=== PATIENT | female | born 1945 | race Caucasian/White ===

== ENCOUNTER 2017-07-11 10:38 | Inpatient (IN) | payer MEDICARE, BC ==
[2017-07-11] MEDS ORDERED: methylPREDNISolone Sodium Succinate 125 MG/2 ML SDV IVPUSH ONE (10:51)
[2017-07-11] MEDS ORDERED: Albuterol/Ipratropium 3.0-0.5 MG/3 ML Neb Soln NEB ONE (10:51)
--- NOTE | 2017-07-11 10:53 | EDM.PDOC ---
ED HPI GENERAL MEDICAL PROBLEM - General Stated Complaint: SOB, FEVER Time Seen by Provider: 07/11/17 10:38 Source of Information: Reports: Patient, Family History Limitations: Reports: Respiratory Distress - History of Present Illness INITIAL COMMENTS - FREE TEXT/NARRATIVE: 72 y.o.w.f with H/O lung CA, S/P right sided pneumonectomy 2002, former smoker, H/O COPD, was on 2 liter Home O2 which she had to increase to 4 ml by NC due to worsening of SOB. No cough, no F/C no other acute medical issues BP 122/85 Pulse 85 Pulse oc 94 % on 4 liters O2 Temp 36.6 Onset Date: 07/11/17 Onset Time: 07:00 Duration: Day(s): Location: Reports: Chest Quality: Reports: Same as Previous Episode Severity: Moderate Improves with: Reports: Medication Worsens with: Reports: None Context: Reports: Other (H/O Lung CA R pneumonectomy) Associated Symptoms: Reports: Shortness of Breath - Related Data Allergies Allergy/AdvReac Type Severity Reaction Status Date / Time No Known Allergies Allergy Verified 07/11/17 13:01 Home Meds: Home Meds Clopidogrel [Plavix] 75 mg PO DAILY@1330 06/25/15 [History] Isosorbide Mononitrate [Isosorbide Mononitrate ER] 30 mg PO DAILY 06/25/15 [ History] Multivitamin [Multi-Day Vitamins] 1 tab DAILY 06/25/15 [History] atorvaSTATin [Lipitor] 40 mg PO DAILY 06/25/15 [History] Digoxin [Digox] 125 mcg PO DAILY 07/12/15 [History] Escitalopram [Lexapro] 10 mg PO DAILY 07/12/15 [History] Furosemide [Lasix] 20 mg PO DAILY #60 tablet 07/19/15 [Rx] Ferrous Sulfate 325 mg PO DAILY 09/14/15 [History] Metoprolol Tartrate 25 mg PO DAILY 09/14/15 [History] Potassium Chloride 20 meq PO DAILY 09/14/15 [History] Acetaminophen [Tylenol] 650 mg PO Q4H PRN 07/09/16 [History] Albuterol/Ipratropium [Combivent Respimat] 1 puff IH 6XDAY PRN 07/11/17 [History ] Aspirin [Ecotrin] 81 mg PO DAILY 07/11/17 [History] Ranitidine [Zantac] 75 mg PO DAILY 07/11/17 [History] predniSONE 20 mg PO BID #10 tab 07/13/17 [Rx] Past Medical History HEENT History: Reports: Retinal Detachment, Sinusitis Cardiovascular History: Reports: Heart Murmur, Heart Valve Replacement, High Cholesterol, [place], Pacemaker, SOB on Exertion, Stents Respiratory History: Reports: Bronchitis, Recurrent, COPD, Pneumonia, Recurrent , SOB [employer] History: Reports: Musculoskeletal History: Reports: Fracture Other Musculoskeletal History: fx R ankle Hematologic History: Reports: Anemia, Blood Transfusion(s) Oncologic (Cancer) History: Reports: Lung Dermatologic History: Reports: Eczema, Psoriasis - Infectious Disease History Infectious Disease History: Reports: Chicken Pox, Measles, Mumps, Shingles - Past Surgical History HEENT Surgical History: Reports: Cataract Surgery, Eye Surgery, Tonsillectomy Cardiovascular Surgical History: Reports: AAA Repair, Carotid Stents, Pacer, Valve Replacement Respiratory Surgical History: Reports: Lung Biopsies, Lung Resection, Thoracotomy, Other (See Below) Musculoskeletal Surgical History: Reports: Other (See Below) Social & Family History - Family History HEENT: Reports: Hearing Impairment Cardiac: Reports: High Cholesterol, [place] Respiratory: Reports: None GI: Reports: Irritable Bowel Syndrome : Reports: Renal Calculus OBGYN: Reports: , Recurrent Spontaneous Musculoskeletal: Reports: Back pain, Chronic Neurological: Reports: None Psychiatric: Reports: None Endocrine/Metabolic: Reports: Diabetes, type II Hematologic: Reports: Anemia Immunologic: Reports: None Dermatologic: Reports: Eczema, Psoriasis Oncologic: Reports: Lung - Tobacco Use Smoking Status *Q: Former Smoker Years of Tobacco use: 40 Packs/Tins Daily: 1 Used Tobacco, but Quit: Yes Month Tobacco Last Used: 05/2001 Second Hand Smoke Exposure: No - Caffeine Use Caffeine Use: Reports: Coffee - Recreational Drug Use Recreational Drug Use: No ED ROS GENERAL - Review of Systems Review Of Systems: See Below Constitutional: Reports: No Symptoms HEENT: Reports: No Symptoms Respiratory: Reports: Shortness of Breath Cardiovascular: Reports: No Symptoms Endocrine: Reports: No Symptoms GI/Abdominal: Reports: No Symptoms : Reports: No Symptoms Musculoskeletal: Reports: No Symptoms Skin: Reports: No Symptoms Neurological: Reports: No Symptoms Psychiatric: Reports: No Symptoms Hematologic/Lymphatic: Reports: No Symptoms Immunologic: Reports: No Symptoms ED EXAM, GENERAL - Physical Exam Exam: See Below Exam Limited By: Respiratory Distress General Appearance: Alert, WD/WN, Mild Distress Eye Exam: Bilateral Eye: Normal Inspection Ears: Normal External Exam Ear Exam: Bilateral Ear: Auricle Normal Nose: Normal Inspection, Normal Mucosa Throat/Mouth: Normal Inspection, Normal Lips Head: Atraumatic, Normocephalic Neck: Normal Inspection, Supple, Non-Tender Respiratory/Chest: Respiratory Distress, Decreased Breath Sounds, Prolonged Expiration Cardiovascular: Normal Peripheral Pulses, Regular Rate, Rhythm GI/Abdominal: Normal Bowel Sounds, Soft, Non-Tender (Female) Exam: Deferred Rectal (Female) Exam: Deferred Back Exam: Normal Inspection, Full Range of Motion Extremities: Normal Inspection, Normal Range of Motion, Non-Tender, No Pedal Edema Neurological: Alert, Oriented, CN II-XII Intact, Normal Cognition Psychiatric: Normal Affect, Normal Mood Skin Exam: Warm, Dry, Intact, Normal Color, No Rash Lymphatic: No Adenopathy EKG INTERPRETATION EKG Date: 07/11/17 Time: 15:00 Rhythm: NSR [place]: LAD-Left [place] Deviation P-Wave: Present QRS: LBBB ST-T: Normal QT: Normal Comparison: NA - No Prior EKG Course - Vital Signs Text/Narrative:: 72 y.o.w.f with H/O lung CA, S/P right sided pneumonectomy 2002, former smoker, H/O COPD, was on 2 liter Home O2 which she had to increase to 4 ml by NC due to worsening of SOB. No cough, no F/C no other acute medical issues BP 122/85 Pulse 85 Pulse oc 94 % on 4 liters O2 Temp 36.6 PE: WNWD WF with COPD exacerbation Imaging: CXR R pneumectomy COPD Impression: COPD exacerbation, S/P right sided pneumectomy Tx: Solu Medrol Duoneb Reexam: Minor improvement 12.[address] Rodriguez: Accepted for admission Plan: Admit for further Tx Last Recorded V/S: Last Vital Signs Temp 36.4 C 07/13/17 08:00 Pulse 113 H 07/13/17 08:52 Resp 18 07/13/17 08:00 BP 149/78 H 07/13/17 08:51 Pulse Ox 93 L 07/13/17 08:15 - Orders/Labs/Meds Labs: Laboratory Tests 07/11/17 07/11/17 07/11/17 Range/Units 11:10 11:10 11:10 WBC 9.4 (4.5-12.0) X10-3/uL RBC 3.77 (3.23-5.20) x10(6)uL Hgb 11.4 L (11.5-15.5) g/dL Hct 34.3 (30.0-51.3) % MCV 90.8 (80-96) fL MCH 30.2 (27.7-33.6) pg MCHC 33.2 (32.2-35.4) g/dL RDW 13.2 (11.5-15.5) % Plt Count 323 (125-369) X10(3)uL MPV 7.4 (7.4-10.4) fL Neut % (Auto) 82.2 H (46-82) % Lymph % (Auto) 4.6 L (13-37) % [place] % (Auto) 10.3 (4-12) % Eos % (Auto) 2 (1.0-5.0) % Baso % (Auto) 1 (0-2) % Neut # (Auto) 7.8 (1.6-8.3) # Lymph # (Auto) 0.4 L (0.6-5.0) # [place] # (Auto) 1.0 (0.0-1.3) # Eos # (Auto) 0.1 (0.0-0.8) # Baso # (Auto) 0.1 (0.0-0.2) # Add Manual Diff Neutrophils % (Manual) (46-82) % Lymphocytes % (Manual) (13-37) % Monocytes % (Manual) (4-12) % Sodium 143 (135-145) mmol/L Potassium 4.2 (3.5-5.3) mmol/L Chloride 105 (100-110) mmol/L Carbon Dioxide 31 (21-32) mmol/L BUN 26 H (7-18) mg/dL Creatinine 0.7 (0.55-1.02) mg/dL Est Cr Clr Drug Dosing TNP Estimated GFR (MDRD) > 60 (>60) BUN/Creatinine Ratio 37.1 H (9-20) Glucose 110 (80-116) mg/dL Lactic Acid (0.4-2.2) mmol/L Calcium 9.3 (8.6-10.2) mg/dL Troponin I < 0.017 L (<0.017-0.056) ng/mL NT-Pro-B Natriuret Pep 636 H (<=125) pg/mL Urine Color (YELLOW) Urine Appearance (CLEAR) Urine pH (5.0-6.5) Ur Specific [place] (1.010-1.025) Urine Protein (NEGATIVE) mg/dL Urine Glucose (UA) (NEGATIVE) mg/dL Urine Ketones (NEGATIVE) mg/dL Urine Occult Blood (NEGATIVE) Urine Nitrite (NEGATIVE) Urine Bilirubin (NEGATIVE) Urine Urobilinogen (NEGATIVE) mg/dL Ur Leukocyte Esterase (NEGATIVE) Urine RBC (0) Urine WBC (0) Ur Squamous Epith Cells (NS,R,O) Urine Bacteria (NS) Urine Mucus (NS) Ur L.pneumophila Ag (NEG) 07/11/17 07/11/17 07/11/17 Range/Units 11:10 12:00 19:20 WBC (4.5-12.0) X10-3/uL RBC (3.23-5.20) x10(6)uL Hgb (11.5-15.5) g/dL Hct (30.0-51.3) % MCV (80-96) fL MCH (27.7-33.6) pg MCHC (32.2-35.4) g/dL RDW (11.5-15.5) % Plt Count (125-369) X10(3)uL MPV (7.4-10.4) fL Neut % (Auto) (46-82) % Lymph % (Auto) (13-37) % [place] % (Auto) (4-12) % Eos % (Auto) (1.0-5.0) % Baso % (Auto) (0-2) % Neut # (Auto) (1.6-8.3) # Lymph # (Auto) (0.6-5.0) # [place] # (Auto) (0.0-1.3) # Eos # (Auto) (0.0-0.8) # Baso # (Auto) (0.0-0.2) # Add Manual Diff Neutrophils % (Manual) (46-82) % Lymphocytes % (Manual) (13-37) % Monocytes % (Manual) (4-12) % Sodium (135-145) mmol/L Potassium (3.5-5.3) mmol/L Chloride (100-110) mmol/L Carbon Dioxide (21-32) mmol/L BUN (7-18) mg/dL Creatinine (0.55-1.02) mg/dL Est Cr Clr Drug Dosing Estimated GFR (MDRD) (>60) BUN/Creatinine Ratio (9-20) Glucose (80-116) mg/dL Lactic Acid 0.8 (0.4-2.2) mmol/L Calcium (8.6-10.2) mg/dL Troponin I (<0.017-0.056) ng/mL NT-Pro-B Natriuret Pep (<=125) pg/mL Urine Color Yellow (YELLOW) Urine Appearance Clear (CLEAR) Urine pH 5.0 (5.0-6.5) Ur Specific [place] 1.020 (1.010-1.025) Urine Protein Negative (NEGATIVE) mg/dL Urine Glucose (UA) Normal (NEGATIVE) mg/dL Urine Ketones Negative (NEGATIVE) mg/dL Urine Occult Blood Moderate H (NEGATIVE) Urine Nitrite Negative (NEGATIVE) Urine Bilirubin Negative (NEGATIVE) Urine Urobilinogen 1 H (NEGATIVE) mg/dL Ur Leukocyte Esterase Small H (NEGATIVE) Urine RBC 0-5 (0) Urine WBC 0-5 (0) Ur Squamous Epith Cells Few H (NS,R,O) Urine Bacteria Few H (NS) Urine Mucus Few H (NS) Ur L.pneumophila Ag Negative (NEG) 07/12/17 07/12/17 07/12/17 Range/Units 06:48 06:48 06:48 WBC 7.4 (4.5-12.0) X10-3/uL RBC 3.70 (3.23-5.20) x10(6)uL Hgb 11.1 L (11.5-15.5) g/dL Hct 32.9 (30.0-51.3) % MCV 89.1 (80-96) fL MCH 30.2 (27.7-33.6) pg MCHC 33.9 (32.2-35.4) g/dL RDW 13.1 (11.5-15.5) % Plt Count 336 (125-369) X10(3)uL MPV 7.5 (7.4-10.4) fL Neut % (Auto) (46-82) % Lymph % (Auto) (13-37) % [place] % (Auto) (4-12) % Eos % (Auto) (1.0-5.0) % Baso % (Auto) (0-2) % Neut # (Auto) (1.6-8.3) # Lymph # (Auto) (0.6-5.0) # [place] # (Auto) (0.0-1.3) # Eos # (Auto) (0.0-0.8) # Baso # (Auto) (0.0-0.2) # Add Manual Diff Yes Neutrophils % (Manual) 94 H (46-82) % Lymphocytes % (Manual) 5 L (13-37) % Monocytes % (Manual) 1 L (4-12) % Sodium 142 (135-145) mmol/L Potassium 4.2 (3.5-5.3) mmol/L Chloride 104 (100-110) mmol/L Carbon Dioxide 30 (21-32) mmol/L BUN 28 H (7-18) mg/dL Creatinine 0.5 L (0.55-1.02) mg/dL Est Cr Clr Drug Dosing 96.61 Estimated GFR (MDRD) > 60 (>60) BUN/Creatinine Ratio 56.0 H (9-20) Glucose 167 H (80-116) mg/dL Lactic Acid (0.4-2.2) mmol/L Calcium 9.4 (8.6-10.2) mg/dL Troponin I < 0.017 L (<0.017-0.056) ng/mL NT-Pro-B Natriuret Pep (<=125) pg/mL Urine Color (YELLOW) Urine Appearance (CLEAR) Urine pH (5.0-6.5) Ur Specific [place] (1.010-1.025) Urine Protein (NEGATIVE) mg/dL Urine Glucose (UA) (NEGATIVE) mg/dL Urine Ketones (NEGATIVE) mg/dL Urine Occult Blood (NEGATIVE) Urine Nitrite (NEGATIVE) Urine Bilirubin (NEGATIVE) Urine Urobilinogen (NEGATIVE) mg/dL Ur Leukocyte Esterase (NEGATIVE) Urine RBC (0) Urine WBC (0) Ur Squamous Epith Cells (NS,R,O) Urine Bacteria (NS) Urine Mucus (NS) Ur L.pneumophila Ag (NEG) Meds: Medications Discontinued Medications Generic Name Dose Route Start Last Admin Trade Name Freq PRN Reason Stop Dose Admin Acetaminophen 650 mg 07/11/17 15:06 Tylenol PO Q4H PRN Pain/Fever Albuterol/Ipratropium 3 ml 07/11/17 10:51 07/11/17 12:16 Duoneb 3.0-0.5 Mg/3 Ml NEB 07/11/17 10:52 3 ml ONETIME ONE Administration Albuterol/Ipratropium 0 gm 07/11/17 16:00 07/11/17 20:29 Combivent Respimat INH 1 spray 6XDAY PRN Administration BREATHING Albuterol/Ipratropium 3 ml 07/12/17 08:15 07/12/17 09:44 Duoneb 3.0-0.5 Mg/3 Ml INH 3 ml Q4H PRN Administration SHORTNESS OF BREATH Aspirin 81 mg 07/11/17 16:00 07/13/17 08:51 Halfprin PO 81 mg DAILY TRAN Administration Atorvastatin Calcium 40 mg 07/12/17 09:00 07/13/17 08:51 Lipitor PO 40 mg DAILY TRAN Administration Clopidogrel Bisulfate 75 mg 07/11/17 16:00 07/12/17 13:48 Plavix PO 75 mg DAILY@1330 TRAN Administration Digoxin 125 mcg 07/12/17 09:00 07/13/17 08:52 Lanoxin PO 125 mcg DAILY TRAN Administration Escitalopram Oxalate 10 mg 07/12/17 09:00 07/13/17 08:52 Lexapro PO 10 mg DAILY TRAN Administration Famotidine 10 mg 07/12/17 09:00 Pepcid PO DAILY PRN HEARTBURN Ferrous Sulfate 325 mg 07/12/17 09:00 07/13/17 08:51 Ferrous Sulfate PO 325 mg DAILY TRAN Administration Furosemide 20 mg 07/12/17 09:00 07/13/17 08:52 Lasix PO 20 mg DAILY TRAN Administration Furosemide 20 mg 07/12/17 08:05 07/12/17 09:19 Lasix IVPUSH 07/12/17 08:06 20 mg ONETIME ONE Administration Levofloxacin/Dextrose 500 mg/ 100 mls @ 100 mls/hr 07/12/17 09:00 07/13/17 08 :59 Premix IV 100 mls/hr Q24H TRAN Administration Isosorbide Mononitrate 30 mg 07/12/17 09:00 07/13/17 08:51 Imdur PO 30 mg DAILY TRAN Administration Methylprednisolone Sodium Succinate 125 mg 07/11/17 10:51 07/11/17 11:25 Solu-Medrol IVPUSH 07/11/17 10:52 125 mg ONETIME ONE Administration Methylprednisolone Sodium Succinate 125 mg 07/11/17 12:45 07/11/17 14:00 Solu-Medrol IVPUSH Not Given Q8H TRAN Methylprednisolone Sodium Succinate 125 mg 07/11/17 20:00 07/13/17 04:52 Solu-Medrol IVPUSH 125 mg Q8H TRAN Administration Metoprolol Tartrate 25 mg 07/12/17 09:00 07/13/17 08:50 Lopressor PO 25 mg DAILY TRAN Administration Multivitamins/Minerals/Vitamin C 1 tab 07/12/17 09:00 07/13/17 08:51 Tab-A-Kori PO 1 tab DAILY TRAN Administration Ondansetron HCl 4 mg 07/11/17 12:41 Zofran Odt PO Q4H PRN nausea, able to take PO Potassium Chloride 20 meq 07/12/17 09:00 07/13/17 08:52 Klor-Con M20 PO 20 meq DAILY TRAN Administration Sodium Chloride 10 ml 07/11/17 12:56 07/13/17 04:53 Saline Flush FLUSH 10 ml ASDIRECTED PRN Administration Keep Vein Open Zolpidem Tartrate 5 mg 07/12/17 18:47 Ambien PO BEDTIME PRN Sleep Departure - Departure Time of Disposition: 10:00 Disposition: Admitted As Inpatient 67 Condition: Fair Clinical Impression: COPD with exacerbation - Discharge Information
[2017-07-11] MEDS: Sodium Chloride 0.9% 10 ML Syringe FLUSH PRN (11:25)
[2017-07-11] MEDS ORDERED: Ondansetron 4 MG Tab.DIS PO PRN (12:41)
[2017-07-11] MEDS ORDERED: methylPREDNISolone Sodium Succinate 125 MG/2 ML SDV IVPUSH SCH (12:45)
--- NOTE | 2017-07-11 13:54 | CR ---
INDICATION: Short of breath. CHEST: PA and lateral views of the chest 07/11/2017 were compared with 2016 and 02/10/2016, again revealing opacification of the right hemithorax with shift to the right of midline structures. This is compatible with right pneumonectomy. The heart did not appear enlarged with bipolar pacemaker leads unchanged in position. The left lung appears to be somewhat hyperaerated with flattened diaphragm leaves, which may simply be on the basis of compensatory hyperaeration. There appears to be mild prominence of the upper lung field pulmonary vasculature, which may be on the basis of compensatory hyperaeration also. Interstitial markings are prominent, suggesting the possibility of either fibrosis, lung edema, or infection - correlate clinically. No consolidating pneumonia or effusion was seen, however. IMPRESSION: Stable chest, no definite acute process. Findings should be correlated clinically, however, as noted above. MTDD
[2017-07-11] MEDS ORDERED: Acetaminophen 325 MG Tab PO PRN (15:06)
[2017-07-11] MEDS ORDERED: IPRATROPIUM INH PRN (16:00)
[2017-07-11] MEDS ORDERED: ALBUTEROL INH PRN (16:00)
[2017-07-11] MEDS: Aspirin 81 MG Tab.EC PO SCH (16:26)
[2017-07-11] MEDS: Clopidogrel 75 MG Tab PO SCH (16:26)
--- NOTE | 2017-07-11 18:05 | PCM.HP ---
H&P History of Present Illness - General Date of Service: 07/11/17 Admit Problem/Dx: Admission Diagnosis/Problem Admission Diagnosis/Problem COPD, Mild chronic obstructive pulmonary disease Source of Information: Patient, Old Records History Limitations: Reports: No Limitations - History of Present Illness Initial Comments - Free Text/Narative: Charito is a 72-year-old female came in with shortness of breath cough symptoms have been going on since the middle of May. She was treated with Levaquin by Dr Ruiz as an outpatient,with minimal improvement.She also took prednisone but did not seem to improve.She complains of extreme shortness of breath on ambulation or even speech. She's has a h/o of COPD that is oxygen dependent, history of lung cancer with pneumonectomy on the right, about 15 years ago. She is a previous smoker. She also has a history of atrial fibrillation, coronary disease that previously been stable.ECHO in 09/2016 showed EF of 65%. In 2015 she was admitted with RSV bronchiolitis that center into respiratory failure. This time she complains of a productive cough as well and increased need of oxygenation. No leg swelling no chest pain and no chills.Has had fever on and off. - Related Data Allergies/Adverse Reactions: Allergies Allergy/AdvReac Type Severity Reaction Status Date / Time No Known Allergies Allergy Verified 07/11/17 13:01 Home Medications: Home Meds Clopidogrel [Plavix] 75 mg PO DAILY@1330 06/25/15 [History] Isosorbide Mononitrate [Isosorbide Mononitrate ER] 30 mg PO DAILY 06/25/15 [ History] Multivitamin [Multi-Day Vitamins] 1 tab DAILY 06/25/15 [History] atorvaSTATin [Lipitor] 40 mg PO DAILY 06/25/15 [History] Digoxin [Digox] 125 mcg PO DAILY 07/12/15 [History] Escitalopram [Lexapro] 10 mg PO DAILY 07/12/15 [History] Furosemide [Lasix] 20 mg PO DAILY #60 tablet 07/19/15 [Rx] Ferrous Sulfate 325 mg PO DAILY 09/14/15 [History] Metoprolol Tartrate 25 mg PO DAILY 09/14/15 [History] Potassium Chloride 20 meq PO DAILY 09/14/15 [History] Acetaminophen [Tylenol] 650 mg PO Q4H PRN 07/09/16 [History] Levofloxacin [Levaquin] 500 mg PO Q24H #8 tablet 07/12/16 [Rx] Albuterol/Ipratropium [Combivent Respimat] 1 puff IH 6XDAY PRN 07/11/17 [History ] Aspirin [Ecotrin] 81 mg PO DAILY 07/11/17 [History] Ranitidine [Zantac] 75 mg PO DAILY 07/11/17 [History] Past Medical History HEENT History: Reports: Retinal Detachment, Sinusitis Cardiovascular History: Reports: Heart Murmur, Heart Valve Replacement, High Cholesterol, [place], Pacemaker, SOB on Exertion, Stents Respiratory History: Reports: Bronchitis, Recurrent, COPD, Pneumonia, Recurrent , 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: Musculoskeletal History: Reports: Fracture Other Musculoskeletal History: fx R ankle Hematologic History: Reports: Anemia, Blood Transfusion(s) Oncologic (Cancer) History: Reports: Lung Dermatologic History: Reports: Eczema, Psoriasis - Infectious Disease History Infectious Disease History: Reports: Chicken Pox, Measles, Mumps, Shingles - Past Surgical History HEENT Surgical History: Reports: Cataract Surgery, Eye Surgery, Tonsillectomy Cardiovascular Surgical History: Reports: AAA Repair, Carotid Stents, Pacer, Valve Replacement Respiratory Surgical History: Reports: Lung Biopsies, Lung Resection, Thoracotomy, Other (See Below) GI Surgical History: Reports: Appendectomy, Colonoscopy Musculoskeletal Surgical History: Reports: Other (See Below) Social & Family History - Family History HEENT: Reports: Hearing Impairment Cardiac: Reports: High Cholesterol, OK Respiratory: Reports: None GI: Reports: Irritable Bowel Syndrome : Reports: Renal Calculus OBGYN: Reports: , Recurrent Spontaneous Musculoskeletal: Reports: Back pain, Chronic Neurological: Reports: None Psychiatric: Reports: None Endocrine/Metabolic: Reports: Diabetes, type II Hematologic: Reports: Anemia Immunologic: Reports: None Dermatologic: Reports: Eczema, Psoriasis Oncologic: Reports: Lung - Tobacco Use Smoking Status *Q: Former Smoker Years of Tobacco use: 40 Packs/Tins Daily: 1 Used Tobacco, but Quit: Yes Month Tobacco Last Used: can't remember Second Hand Smoke Exposure: No - Caffeine Use Caffeine Use: Reports: Coffee Other Caffeine Use: 2 cups per day - Recreational Drug Use Recreational Drug Use: No H&P Review of Systems - Review of Systems: Review Of Systems: ROS reveals no pertinent complaints other than HPI. Exam - Exam Exam: See Below - Vital Signs Vital Signs: Last Vital Signs Temp 98.6 F 07/11/17 17:00 Pulse 61 07/11/17 17:00 Resp 21 H 07/11/17 17:00 BP 130/58 L 07/11/17 17:00 Pulse Ox 95 07/11/17 17:00 Weight: 67.903 kg - Exam Quality Assessment: Supplemental Oxygen General: Mild Distress HEENT: PERRLA, Hearing Intact, Mucosa Moist & [place], Nares Patent, Normal Nasal Septum, Posterior Pharynx Clear, Conjunctiva Clear, EOMI, EACs Clear, TMs Clear Neck: Supple, Trachea Midline, 2 Lungs: Decreased Breath Sounds, Rhonchi Cardiovascular: Regular Rate, Regular Rhythm GI/Abdominal Exam: Normal Bowel Sounds, Soft, Non-Tender, No Organomegaly, No Distention, No Abnormal Bruit, No Mass, Pelvis Stable (Female) Exam: Deferred Rectal (Female) Exam: Deferred Back Exam: Normal Inspection, Full Range of Motion, NT Extremities: Normal Inspection, Normal Range of Motion, Non-Tender, No Pedal Edema, Normal Capillary Refill Skin: Warm, Dry, Intact Neurological: Cranial Nerves Intact, Reflexes Equal Bilateral Neuro Extensive - Mental Status: Alert, Oriented x3, Normal Mood/Affect, Normal Cognition Neuro Extensive - Motor, Sensory, Reflexes: CN II-XII Intact, Normal Gait, Normal Reflexes Psychiatric: Alert, Normal Affect, Normal Mood - Patient Data Result Diagrams: 07/11/17 11:10 07/11/17 11:10 *Q Meaningful Use (ADM) - VTE *Q VTE Criteria *Q: - Stroke *Q Stroke Criteria *Q: - AMI *Q AMI Criteria *Q: - Problem List (1) COPD with exacerbation SNOMED Code(s): 247684504585996 ICD Code: J44.1 - CHRONIC OBSTRUCTIVE PULMONARY DISEASE W (ACUTE) EXACERBATION Status: Acute Priority: High Current Visit: No (2) CHF (congestive heart failure), NYHA class IV SNOMED Code(s): 085141376 ICD Code: I50.9 - HEART FAILURE, UNSPECIFIED Status: Acute Priority: High Current Visit: No Qualifiers: Congestive heart failure type: diastolic Congestive heart failure chronicity: acute Qualified Code(s): I50.31 - Acute diastolic (congestive) heart failure (3) Supplemental oxygen dependent SNOMED Code(s): 871819916103 ICD Code: Z99.81 - DEPENDENCE ON SUPPLEMENTAL OXYGEN Status: Acute Current Visit: No (4) Atrial fibrillation, controlled SNOMED Code(s): 692692880 ICD Code: I48.91 - UNSPECIFIED ATRIAL FIBRILLATION Status: Chronic Priority: High Current Visit: No (5) CAD (coronary artery disease) SNOMED Code(s): 49489379 ICD Code: I25.10 - ATHSCL HEART DISEASE OF [place] CORONARY ARTERY W/O ANG PCTRS Status: Chronic Current Visit: No Qualifiers: Coronary Disease-Associated Artery/Lesion type: [place] artery (6) Cardiac pacemaker in situ SNOMED Code(s): 320995233 ICD Code: Z95.0 - PRESENCE OF CARDIAC PACEMAKER Status: Chronic Current Visit: No (7) Chronic anticoagulation SNOMED Code(s): 991478847 ICD Code: Z79.01 - SENIOR CARE (CURRENT) USE OF ANTICOAGULANTS Status: Chronic Current Visit: No (8) H/O aortic valve replacement SNOMED Code(s): 6769929923940, 1645782256033 ICD Code: Z95.2 - PRESENCE OF PROSTHETIC HEART VALVE Status: Chronic Priority: High Current Visit: No (9) History of pneumonectomy SNOMED Code(s): 920927142 ICD Code: Z90.2 - ACQUIRED ABSENCE OF LUNG [PART OF] Status: Chronic Current Visit: No Problem List Initiated/Reviewed/Updated: Yes Orders Last 24hrs: Active Orders 24 hr Category Date Time Status BASIC METABOLIC PANEL,BMP [CHEM] AM Lab 07/12/17 05:11 Ordered CBC WITH AUTO DIFF [HEME] AM Lab 07/12/17 05:11 Ordered TROPONIN I [CHEM] AM Lab 07/12/17 05:11 Ordered Acetaminophen [Tylenol] Med 07/11/17 15:06 Active 650 mg PO Q4H PRN Albuterol/Ipratropium [Combivent Respimat] Med 07/11/17 16:00 Active 0 gm INH 6XDAY PRN Aspirin [Halfprin] Med 07/11/17 16:00 Active 81 mg PO DAILY Clopidogrel [Plavix] Med 07/11/17 16:00 Active 75 mg PO DAILY@1330 Digoxin [Lanoxin] Med 07/12/17 09:00 Active 125 mcg PO DAILY Escitalopram [Lexapro] Med 07/12/17 09:00 Active 10 mg PO DAILY Ferrous Sulfate Med 07/12/17 09:00 Active 325 mg PO DAILY Furosemide [Lasix] Med 07/12/17 09:00 Active 20 mg PO DAILY Isosorbide Mononitrate [Imdur] Med 07/12/17 09:00 Active 30 mg PO DAILY Metoprolol Tartrate [Lopressor] Med 07/12/17 09:00 Active 25 mg PO DAILY Multivitamins [Tab-A-Kori] Med 07/12/17 09:00 Active 1 tab PO DAILY Potassium Chloride [Klor-Con M20] Med 07/12/17 09:00 Active 20 meq PO DAILY Ranitidine [Zantac] Med 07/12/17 09:00 Pending 0 mg PO DAILY PRN Sodium Chloride 0.9% [Saline Flush] Med 07/11/17 12:56 Active 10 ml FLUSH ASDIRECTED PRN atorvaSTATin [Lipitor] Med 07/12/17 09:00 Active 40 mg PO DAILY methylPREDNISolone Sod Succ [Solu-MEDROL] Med 07/11/17 20:00 Active 125 mg IVPUSH Q8H Peripheral IV Insertion Adult [OM.PC] Routine Oth 07/11/17 11:20 Ordered Medication Orders Acetaminophen (Tylenol) 650 mg PO Q4H PRN PRN Reason: Pain/Fever Albuterol/Ipratropium (Combivent Respimat) 0 gm INH 6XDAY PRN PRN Reason: BREATHING Aspirin (Halfprin) 81 mg PO DAILY [facility] Last Admin: 07/11/17 16:26 Dose: 81 mg Atorvastatin Calcium (Lipitor) 40 mg PO DAILY [facility] Clopidogrel Bisulfate (Plavix) 75 mg PO DAILY@1330 [facility] Last Admin: 07/11/17 16:26 Dose: 75 mg Digoxin (Lanoxin) 125 mcg PO DAILY [facility] Escitalopram Oxalate (Lexapro) 10 mg PO DAILY [facility] Ferrous Sulfate (Ferrous Sulfate) 325 mg PO DAILY [facility] Furosemide (Lasix) 20 mg PO DAILY [facility] Isosorbide Mononitrate (Imdur) 30 mg PO DAILY [facility] Methylprednisolone Sodium Succinate (Solu-Medrol) 125 mg IVPUSH Q8H [facility] Metoprolol Tartrate (Lopressor) 25 mg PO DAILY [facility] Multivitamins/Minerals/Vitamin C (Tab-A-Kori) 1 tab PO DAILY TRAN Zantac 75mg 0 mg PO DAILY PRN PRN Reason: HEARTBURN Ondansetron HCl (Zofran Odt) 4 mg PO Q4H PRN PRN Reason: nausea, able to take PO Potassium Chloride (Klor-Con M20) 20 meq PO DAILY [facility] Sodium Chloride (Saline Flush) 10 ml FLUSH ASDIRECTED PRN PRN Reason: Keep Vein Open Last Admin: 07/11/17 11:25 Dose: 10 ml Assessment/Plan Comment:: Her chest x-ray is unremarkable for any new process. I will continue with the home medications including oral Levaquin,her home med. Also give IV Solu-Medrol in place of oral prednisone. Continue SVNs. I've ordered for influenza AB and as the screening. Repeat CBC and BNP in AM.Continue supplementation of oxygen as needed. His symptoms are not improving morning we'll consider admission to inpatient care.
[2017-07-11] MEDS: methylPREDNISolone Sodium Succinate 125 MG/2 ML SDV IVPUSH SCH (20:22)
[2017-07-12] MEDS: methylPREDNISolone Sodium Succinate 125 MG/2 ML SDV IVPUSH SCH ×3 (04:08→20:08)
[2017-07-12] MEDS: Sodium Chloride 0.9% 10 ML Syringe FLUSH PRN ×5 (04:09→20:09)
--- NOTE | 2017-07-12 08:04 | PCM.PN ---
- General Info Date of Service: 07/12/17 Subjective Update: No much change from yesterday, had a rough night unable to sleep and restless. Still feels short of breath on ambulation or talking. Denies fever or chills. RSV and influenza become negative - Review of Systems General: Reports: No Symptoms Gastrointestinal: Reports: No Symptoms Psychiatric: Reports: Mood Lability - Patient Data Vitals - Most Recent: Last Vital Signs Temp 97.8 F 07/12/17 05:00 Pulse 96 07/12/17 05:30 Resp 18 07/12/17 05:00 BP 142/72 H 07/12/17 05:00 Pulse Ox 94 L 07/12/17 05:00 Weight - Most Recent: 68.067 kg Lab Results Last 24 Hours: Laboratory Results - last 24 hr 07/12/17 07/12/17 07/12/17 Range/Units 06:48 06:48 06:48 WBC 7.4 (4.5-12.0) X10-3/uL RBC 3.70 (3.23-5.20) x10(6)uL Hgb 11.1 L (11.5-15.5) g/dL Hct 32.9 (30.0-51.3) % MCV 89.1 (80-96) fL MCH 30.2 (27.7-33.6) pg MCHC 33.9 (32.2-35.4) g/dL RDW 13.1 (11.5-15.5) % Plt Count 336 (125-369) X10(3)uL MPV 7.5 (7.4-10.4) fL Add Manual Diff Yes Neutrophils % (Manual) 94 H (46-82) % Lymphocytes % (Manual) 5 L (13-37) % Monocytes % (Manual) 1 L (4-12) % Sodium 142 (135-145) mmol/L Potassium 4.2 (3.5-5.3) mmol/L Chloride 104 (100-110) mmol/L Carbon Dioxide 30 (21-32) mmol/L BUN 28 H (7-18) mg/dL Creatinine 0.5 L (0.55-1.02) mg/dL Est Cr Clr Drug Dosing 96.61 mL/min Estimated GFR (MDRD) > 60 (>60) BUN/Creatinine Ratio 56.0 H (9-20) Glucose 167 H (80-116) mg/dL Calcium 9.4 (8.6-10.2) mg/dL Troponin I < 0.017 L (<0.017-0.056) ng/mL Eamon Results Last 24 Hours: Microbiology 07/11/17 18:07 Respiratory Syncytial Virus Ag Scrn - Final Nasopharyngeal Swab - Nare, Left NEGATIVE RSV ANTIGEN 07/11/17 18:07 Influenza Type A Antigen Screen - Final Nasopharyngeal Swab NEGATIVE INFLUENZA A VIRUS AG Influenza Type B Antigen Screen - Final NEGATIVE INFLUENZA B VIRUS AG Med Orders - Current: Current Medications Acetaminophen (Tylenol) 650 mg PO Q4H PRN PRN Reason: Pain/Fever Albuterol/Ipratropium (Combivent Respimat) 0 gm INH 6XDAY PRN PRN Reason: BREATHING Last Admin: 07/11/17 20:29 Dose: 1 spray Aspirin (Halfprin) 81 mg PO DAILY [facility] Last Admin: 07/11/17 16:26 Dose: 81 mg Atorvastatin Calcium (Lipitor) 40 mg PO DAILY [facility] Clopidogrel Bisulfate (Plavix) 75 mg PO DAILY@1330 [facility] Last Admin: 07/11/17 16:26 Dose: 75 mg Digoxin (Lanoxin) 125 mcg PO DAILY [facility] Escitalopram Oxalate (Lexapro) 10 mg PO DAILY [facility] Ferrous Sulfate (Ferrous Sulfate) 325 mg PO DAILY [facility] Furosemide (Lasix) 20 mg PO DAILY [facility] Levofloxacin/Dextrose 500 mg/ (Premix) 100 mls @ 100 mls/hr IV Q24H [facility] Isosorbide Mononitrate (Imdur) 30 mg PO DAILY [facility] Methylprednisolone Sodium Succinate (Solu-Medrol) 125 mg IVPUSH Q8H [facility] Last Admin: 07/12/17 04:08 Dose: 125 mg Metoprolol Tartrate (Lopressor) 25 mg PO DAILY [facility] Multivitamins/Minerals/Vitamin C (Tab-A-Kori) 1 tab PO DAILY [facility] Zantac 75mg 0 mg PO DAILY PRN PRN Reason: HEARTBURN Ondansetron HCl (Zofran Odt) 4 mg PO Q4H PRN PRN Reason: nausea, able to take PO Potassium Chloride (Klor-Con M20) 20 meq PO DAILY [facility] Sodium Chloride (Saline Flush) 10 ml FLUSH ASDIRECTED PRN PRN Reason: Keep Vein Open Last Admin: 07/12/17 04:09 Dose: 10 ml Discontinued Medications Albuterol/Ipratropium (Duoneb 3.0-0.5 Mg/3 Ml) 3 ml NEB ONETIME ONE Stop: 07/11/17 10:52 Last Admin: 07/11/17 12:16 Dose: 3 ml Methylprednisolone Sodium Succinate (Solu-Medrol) 125 mg IVPUSH ONETIME ONE Stop: 07/11/17 10:52 Last Admin: 07/11/17 11:25 Dose: 125 mg Methylprednisolone Sodium Succinate (Solu-Medrol) 125 mg IVPUSH Q8H [facility] Last Admin: 07/11/17 14:00 Dose: Not Given - Exam Quality Assessment: Supplemental Oxygen General: Alert, Oriented HEENT: Pupils Equal Neck: Supple Lungs: Clear to Auscultation, Decreased Breath Sounds Cardiovascular: Regular Rate, Regular Rhythm Psy/Mental Status: Alert - Problem List & Annotations (1) COPD with exacerbation SNOMED Code(s): 182040317833505 Code(s): J44.1 - CHRONIC OBSTRUCTIVE PULMONARY DISEASE W (ACUTE) EXACERBATION Status: Acute Priority: High Current Visit: No (2) CHF (congestive heart failure), NYHA class IV SNOMED Code(s): 188456609 Code(s): I50.9 - HEART FAILURE, UNSPECIFIED Status: Acute Priority: High Current Visit: No Qualifiers: Congestive heart failure type: diastolic Congestive heart failure chronicity: acute Qualified Code(s): I50.31 - Acute diastolic (congestive) heart failure (3) Supplemental oxygen dependent SNOMED Code(s): 781003337961 Code(s): Z99.81 - DEPENDENCE ON SUPPLEMENTAL OXYGEN Status: Acute Current Visit: No (4) Atrial fibrillation, controlled SNOMED Code(s): 967602784 Code(s): I48.91 - UNSPECIFIED ATRIAL FIBRILLATION Status: Chronic Priority: High Current Visit: No (5) CAD (coronary artery disease) SNOMED Code(s): 78767247 Code(s): I25.10 - ATHSCL HEART DISEASE OF [place] CORONARY ARTERY W/O ANG PCTRS Status: Chronic Current Visit: No Qualifiers: Coronary Disease-Associated Artery/Lesion type: [place] artery (6) Cardiac pacemaker in situ SNOMED Code(s): 820223816 Code(s): Z95.0 - PRESENCE OF CARDIAC PACEMAKER Status: Chronic Current Visit: No (7) Chronic anticoagulation SNOMED Code(s): 299355754 Code(s): Z79.01 - DIRECTOR OF CARDIAC CATH LAB (CURRENT) USE OF ANTICOAGULANTS Status: Chronic Current Visit: No (8) H/O aortic valve replacement SNOMED Code(s): 4478059721753, 0024785387862 Code(s): Z95.2 - PRESENCE OF PROSTHETIC HEART VALVE Status: Chronic Priority: High Current Visit: No (9) History of pneumonectomy SNOMED Code(s): 367407930 Code(s): Z90.2 - ACQUIRED ABSENCE OF LUNG [PART OF] Status: Chronic Current Visit: No - Problem List Review Problem List Initiated/Reviewed/Updated: Yes - My Orders Last 24 Hours: My Active Orders 07/11/17 15:06 Acetaminophen [Tylenol] 650 mg PO Q4H PRN 07/11/17 16:00 Albuterol/Ipratropium [Combivent Respimat] 0 gm INH 6XDAY PRN Aspirin [Halfprin] 81 mg PO DAILY Clopidogrel [Plavix] 75 mg PO DAILY@1330 07/11/17 19:20 LEGIONELLA,PNEUMO AG URINE [REF] Routine 07/12/17 07:59 Patient Status Manage Transfer [TRANSFER] Routine 07/12/17 08:00 Levofloxacin/Dextrose 5%-Water [Levaquin in D5W 500 MG/100 ML] 500 mg Premix Bag 1 bag IV Q24H 07/12/17 09:00 Digoxin [Lanoxin] 125 mcg PO DAILY Escitalopram [Lexapro] 10 mg PO DAILY Ferrous Sulfate 325 mg PO DAILY Furosemide [Lasix] 20 mg PO DAILY Isosorbide Mononitrate [Imdur] 30 mg PO DAILY Metoprolol Tartrate [Lopressor] 25 mg PO DAILY Multivitamins [Tab-A-Kori] 1 tab PO DAILY Potassium Chloride [Klor-Con M20] 20 meq PO DAILY Ranitidine [Zantac] 0 mg PO DAILY PRN atorvaSTATin [Lipitor] 40 mg PO DAILY 07/13/17 05:11 BASIC METABOLIC PANEL,BMP [CHEM] AM CBC WITH AUTO DIFF [HEME] AM PRO B-TYPE NATRIUR PEPT,BNPPRO [CHEM] DAILY 07/14/17 05:11 PRO B-TYPE NATRIUR PEPT,BNPPRO [CHEM] DAILY - Plan Plan:: Switch to in-patient care today, start IV redness Levaquin. Repeat CBC basic profile and pro BNP in the morning. I suggest 1 dose of Lasix 20 mg IV.
[2017-07-12] MEDS ORDERED: Furosemide 20 MG/2 ML VIAL IVPUSH ONE (08:05)
[2017-07-12] MEDS ORDERED: Albuterol/Ipratropium 3.0-0.5 MG/3 ML Neb Soln INH PRN (08:15)
[2017-07-12] MEDS ORDERED: Famotidine 10 MG Tab PO PRN (09:00)
[2017-07-12] MEDS ORDERED: Furosemide 20 MG Tab PO SCH (09:00)
[2017-07-12] MEDS: Levofloxacin/Dextrose 5%-Water 500 MG in Premix Bag 1 BAG IV SCH (09:22)
[2017-07-12] MEDS: Isosorbide Mononitrate 30 MG Tab.ER PO SCH (09:28)
[2017-07-12] MEDS: Metoprolol Tartrate 25 MG Tab PO SCH (09:28)
[2017-07-12] MEDS: Potassium Chloride 20 MEQ Tab.ER PO SCH (09:28)
[2017-07-12] MEDS: Digoxin 125 MCG Tab PO SCH (09:28)
[2017-07-12] MEDS: Aspirin 81 MG Tab.EC PO SCH (09:28)
[2017-07-12] MEDS: Multivitamin Tab PO SCH (09:28)
[2017-07-12] MEDS: Escitalopram 10 MG Tab PO SCH (09:29)
[2017-07-12] MEDS: atorvaSTATin 40 MG Tab PO SCH (09:29)
[2017-07-12] MEDS: Ferrous Sulfate 325 MG Tab PO SCH (09:29)
[2017-07-12] MEDS: Clopidogrel 75 MG Tab PO SCH (13:48)
[2017-07-12] MEDS ORDERED: Zolpidem 5 MG Tab PO PRN (18:47)
[2017-07-13] MEDS: methylPREDNISolone Sodium Succinate 125 MG/2 ML SDV IVPUSH SCH (04:52)
[2017-07-13] MEDS: Sodium Chloride 0.9% 10 ML Syringe FLUSH PRN (04:53)
[2017-07-13 08:08] VITALS: BP 149/78
--- NOTE | 2017-07-13 08:14 | PCM.PN ---
- General Info Date of Service: 07/13/17 Subjective Update: Patient feels much better today. She slept well. She would like to go home. - Review of Systems Pulmonary: Reports: Shortness of Breath, Cough Cardiovascular: Reports: No Symptoms Gastrointestinal: Reports: No Symptoms - Patient Data Vitals - Most Recent: Last Vital Signs Temp 97.6 F 07/13/17 08:00 Pulse 113 H 07/13/17 08:00 Resp 18 07/13/17 08:00 BP 149/78 H 07/13/17 08:00 Pulse Ox 95 07/13/17 08:00 Weight - Most Recent: 68.067 kg Lab Results Last 24 Hours: Laboratory Results - last 24 hr 07/13/17 07/13/17 07/13/17 Range/Units 06:20 06:20 06:20 WBC 15.9 H (4.5-12.0) X10-3/uL RBC 3.80 (3.23-5.20) x10(6)uL Hgb 11.1 L (11.5-15.5) g/dL Hct 34.3 (30.0-51.3) % MCV 90.3 (80-96) fL MCH 29.4 (27.7-33.6) pg MCHC 32.5 (32.2-35.4) g/dL RDW 13.2 (11.5-15.5) % Plt Count 364 (125-369) X10(3)uL MPV 7.5 (7.4-10.4) fL Add Manual Diff Yes Neutrophils % (Manual) 96 H (46-82) % Lymphocytes % (Manual) 3 L (13-37) % Monocytes % (Manual) 1 L (4-12) % Poikilocytosis Few Sodium 142 (135-145) mmol/L Potassium 4.1 (3.5-5.3) mmol/L Chloride 105 (100-110) mmol/L Carbon Dioxide 30 (21-32) mmol/L BUN 33 H (7-18) mg/dL Creatinine 0.7 (0.55-1.02) mg/dL Est Cr Clr Drug Dosing 69.01 mL/min Estimated GFR (MDRD) > 60 (>60) BUN/Creatinine Ratio 47.1 H (9-20) Glucose 184 H (80-116) mg/dL Calcium 9.4 (8.6-10.2) mg/dL NT-Pro-B Natriuret Pep 930 H (<=125) pg/mL Med Orders - Current: Current Medications Acetaminophen (Tylenol) 650 mg PO Q4H PRN PRN Reason: Pain/Fever Albuterol/Ipratropium (Duoneb 3.0-0.5 Mg/3 Ml) 3 ml INH Q4H PRN PRN Reason: SHORTNESS OF BREATH Last Admin: 07/12/17 09:44 Dose: 3 ml Aspirin (Halfprin) 81 mg PO DAILY [facility] Last Admin: 07/12/17 09:28 Dose: 81 mg Atorvastatin Calcium (Lipitor) 40 mg PO DAILY [facility] Last Admin: 07/12/17 09:29 Dose: 40 mg Clopidogrel Bisulfate (Plavix) 75 mg PO DAILY@1330 [facility] Last Admin: 07/12/17 13:48 Dose: 75 mg Digoxin (Lanoxin) 125 mcg PO DAILY [facility] Last Admin: 07/12/17 09:28 Dose: 125 mcg Escitalopram Oxalate (Lexapro) 10 mg PO DAILY [facility] Last Admin: 07/12/17 09:29 Dose: 10 mg Famotidine (Pepcid) 10 mg PO DAILY PRN PRN Reason: HEARTBURN Ferrous Sulfate (Ferrous Sulfate) 325 mg PO DAILY [facility] Last Admin: 07/12/17 09:29 Dose: 325 mg Furosemide (Lasix) 20 mg PO DAILY [facility] Levofloxacin/Dextrose 500 mg/ (Premix) 100 mls @ 100 mls/hr IV Q24H [facility] Last Admin: 07/12/17 09:22 Dose: 100 mls/hr Isosorbide Mononitrate (Imdur) 30 mg PO DAILY [facility] Last Admin: 07/12/17 09:28 Dose: 30 mg Methylprednisolone Sodium Succinate (Solu-Medrol) 125 mg IVPUSH Q8H [facility] Last Admin: 07/13/17 04:52 Dose: 125 mg Metoprolol Tartrate (Lopressor) 25 mg PO DAILY [facility] Last Admin: 07/12/17 09:28 Dose: 25 mg Multivitamins/Minerals/Vitamin C (Tab-A-Kori) 1 tab PO DAILY [facility] Last Admin: 07/12/17 09:28 Dose: 1 tab Ondansetron HCl (Zofran Odt) 4 mg PO Q4H PRN PRN Reason: nausea, able to take PO Potassium Chloride (Klor-Con M20) 20 meq PO DAILY [facility] Last Admin: 07/12/17 09:28 Dose: 20 meq Sodium Chloride (Saline Flush) 10 ml FLUSH ASDIRECTED PRN PRN Reason: Keep Vein Open Last Admin: 07/13/17 04:53 Dose: 10 ml Zolpidem Tartrate (Ambien) 5 mg PO BEDTIME PRN PRN Reason: Sleep Discontinued Medications Albuterol/Ipratropium (Duoneb 3.0-0.5 Mg/3 Ml) 3 ml NEB ONETIME ONE Stop: 07/11/17 10:52 Last Admin: 07/11/17 12:16 Dose: 3 ml Albuterol/Ipratropium (Combivent Respimat) 0 gm INH 6XDAY PRN PRN Reason: BREATHING Last Admin: 07/11/17 20:29 Dose: 1 spray Furosemide (Lasix) 20 mg IVPUSH ONETIME ONE Stop: 07/12/17 08:06 Last Admin: 07/12/17 09:19 Dose: 20 mg Methylprednisolone Sodium Succinate (Solu-Medrol) 125 mg IVPUSH ONETIME ONE Stop: 07/11/17 10:52 Last Admin: 07/11/17 11:25 Dose: 125 mg Methylprednisolone Sodium Succinate (Solu-Medrol) 125 mg IVPUSH Q8H [facility] Last Admin: 07/11/17 14:00 Dose: Not Given - Exam Quality Assessment: Supplemental Oxygen General: Alert, Oriented HEENT: Pupils Equal, Scleral Icterus Lungs: Clear to Auscultation, Other (absent BS right side) Cardiovascular: Regular Rate, Regular Rhythm GI/Abdominal Exam: Normal Bowel Sounds, Soft, Non-Tender, No Organomegaly, No Distention, No Abnormal Bruit, No Mass, Pelvis Stable - Problem List & Annotations (1) COPD with exacerbation SNOMED Code(s): 309935786050022 Code(s): J44.1 - CHRONIC OBSTRUCTIVE PULMONARY DISEASE W (ACUTE) EXACERBATION Status: Acute Priority: High Current Visit: No (2) CHF (congestive heart failure), NYHA class IV SNOMED Code(s): 543903870 Code(s): I50.9 - HEART FAILURE, UNSPECIFIED Status: Acute Priority: High Current Visit: No Qualifiers: Congestive heart failure type: diastolic Congestive heart failure chronicity: acute Qualified Code(s): I50.31 - Acute diastolic (congestive) heart failure (3) Supplemental oxygen dependent SNOMED Code(s): 675108765760 Code(s): Z99.81 - DEPENDENCE ON SUPPLEMENTAL OXYGEN Status: Acute Current Visit: No (4) Atrial fibrillation, controlled SNOMED Code(s): 082853575 Code(s): I48.91 - UNSPECIFIED ATRIAL FIBRILLATION Status: Chronic Priority: High Current Visit: No (5) CAD (coronary artery disease) SNOMED Code(s): 77630167 Code(s): I25.10 - ATHSCL HEART DISEASE OF [place] CORONARY ARTERY W/O ANG PCTRS Status: Chronic Current Visit: No Qualifiers: Coronary Disease-Associated Artery/Lesion type: [place] artery (6) Cardiac pacemaker in situ SNOMED Code(s): 749035890 Code(s): Z95.0 - PRESENCE OF CARDIAC PACEMAKER Status: Chronic Current Visit: No (7) Chronic anticoagulation SNOMED Code(s): 552130922 Code(s): Z79.01 - SHELTER (CURRENT) USE OF ANTICOAGULANTS Status: Chronic Current Visit: No (8) H/O aortic valve replacement SNOMED Code(s): 8980751238356, 5378589675526 Code(s): Z95.2 - PRESENCE OF PROSTHETIC HEART VALVE Status: Chronic Priority: High Current Visit: No (9) History of pneumonectomy SNOMED Code(s): 143529951 Code(s): Z90.2 - ACQUIRED ABSENCE OF LUNG [PART OF] Status: Chronic Current Visit: No - Problem List Review Problem List Initiated/Reviewed/Updated: Yes - My Orders Last 24 Hours: My Active Orders 07/12/17 08:15 Albuterol/Ipratropium [DuoNeb 3.0-0.5 MG/3 ML] 3 ml INH Q4H PRN 07/12/17 18:47 Zolpidem [Ambien] 5 mg PO BEDTIME PRN - Assessment Assessment:: Discharge patient today. On oral prednisone. She has finished a ten-day course of Levaquin. - Plan Plan:: Switch to in-patient care today, start IV redness Levaquin. Repeat CBC basic profile and pro BNP in the morning. I suggest 1 dose of Lasix 20 mg IV.
[2017-07-13] MEDS: Metoprolol Tartrate 25 MG Tab PO SCH (08:50)
[2017-07-13] MEDS: Ferrous Sulfate 325 MG Tab PO SCH (08:51)
[2017-07-13] MEDS: Aspirin 81 MG Tab.EC PO SCH (08:51)
[2017-07-13] MEDS: Multivitamin Tab PO SCH (08:51)
[2017-07-13] MEDS: atorvaSTATin 40 MG Tab PO SCH (08:51)
[2017-07-13] MEDS: Isosorbide Mononitrate 30 MG Tab.ER PO SCH (08:51)
[2017-07-13] MEDS: Escitalopram 10 MG Tab PO SCH (08:52)
[2017-07-13] MEDS: Potassium Chloride 20 MEQ Tab.ER PO SCH (08:52)
[2017-07-13] MEDS: Digoxin 125 MCG Tab PO SCH (08:52)
--- NOTE | 2017-07-13 08:53 | DISCH ---
DISCHARGE DATE: 07/13/2017 REASON FOR ADMISSION: 1. COPD exacerbation. 2. CHF. 3. Atrial fibrillation, stable. 4. History of coronary artery disease. 5. History of pneumonectomy. 6. History of valve replacement. CONSULTATIONS: None. BRIEF HISTORY: This is a 72-year-old female, who has had COPD exacerbation for 2 weeks, treated as an outpatient with prednisone and Levaquin. No improvement admitted. Got IV Solu-Medrol and IV Levaquin. Symptoms improved. Chest x-ray was unremarkable. She needed initially 4 L of oxygenation, but by discharge it was 2.5, normal base is 2 L. She was discharged on prednisone 20 mg b.i.d. for 5 days. Follow up with Dr. Ruiz next week. The rest of the home medications were continued. Please note that I spent 35 minutes in discharge of the patient. /[id number] EDGAR/ANUM
[2017-07-13] MEDS: Levofloxacin/Dextrose 5%-Water 500 MG in Premix Bag 1 BAG IV SCH (08:59)
== END 2017-07-13 10:33 | disposition home or self-care (01) | DRG 190 ==
LOC: FB.ED 10:38 → INTOOBSV 12:41 → FB.MS 12:41 → OBSVTOIN 07-12 08:00
PROVIDERS: ADMIT Family Medicine; ATTEND Family Medicine
DX: J44.1 Chronic obstructive pulmonary disease with (acute) exacerbation (principal); I50.31 Acute diastolic (congestive) heart failure; I48.91 Unspecified atrial fibrillation; Z79.01 Long term (current) use of anticoagulants; Z79.52 Long term (current) use of systemic steroids; Z95.2 Presence of prosthetic heart valve; Z85.118 Personal history of other malignant neoplasm of bronchus and lung; Z99.81 Dependence on supplemental oxygen; R06.02 Shortness of breath; R05 Cough; Z87.891 Personal history of nicotine dependence; I25.10 Atherosclerotic heart disease of native coronary artery without angina pectoris; Z87.01 Personal history of pneumonia (recurrent); Z95.5 Presence of coronary angioplasty implant and graft; Z95.0 Presence of cardiac pacemaker; I25.2 Old myocardial infarction; Z90.2 Acquired absence of lung [part of]; Z79.82 Long term (current) use of aspirin
CPT/HCPCS: 36415 ×2; 71046; 80048 ×2; 81001; 83605; 83880; 84484 ×2; 85025 ×2; 87449; 87804 ×2; 87807; 93005; 94640; 96374; 99285; A9270 ×3; J2930 ×3; J7050 ×2; J7620; J1940; J1956

== ENCOUNTER 2019-11-10 07:04 | Day surgery (SDC) | payer MEDICARE, BC ==
[~2019-11-10 07:04] MED LIST: Lactated Ringers 1,000 ML IV SCH; Sodium Chloride 0.9% 10 ML Syringe FLUSH PRN
[2019-11-10] MEDS ORDERED: Propofol 200 MG/20 ML SDV IV ONE (07:05)
[2019-11-10] MEDS ORDERED: Lidocaine 1% PF 2 ML SDV INJECT ONE (07:05)
--- NOTE | 2019-11-10 09:33 | PCM.OPNOTE ---
- General Post-Op/Procedure Note Date of Surgery/Procedure: 11/10/19 Operative Procedure(s): c scope with biopsy Findings: transverse colon polyp diverticulosis internal hemorrhoids Pre Op Diagnosis: hx of anemia and hematochezia Anesthesia Technique: GEOVANNI Primary Surgeon: Nitin Conteh Anesthesia Provider: Eros Montes Pathology: transverse colon polyp Complications: none Condition: Good Free Text/Narrative:: see dictation
[2019-11-10 09:56] VITALS: BP 116/47; PULSE 60
--- NOTE | 2019-11-10 12:49 | OR ---
DATE OF OPERATION: 11/10/2019 SURGEON: Nitin Conteh MD PROCEDURE PERFORMED: Colonoscopy. PREOPERATIVE DIAGNOSES: 1. Hematochezia. 2. History of iron deficient anemia. POSTOPERATIVE DIAGNOSES: 1. Transverse colon polyp. 2. Diverticulosis. 3. Internal hemorrhoids. INDICATIONS FOR PROCEDURE: This is a 74-year-old white female who has the above- mentioned history, required a 2 unit transfusion recently. She was offered and accepted colonoscopy as part of her workup. DESCRIPTION OF OPERATION: After an excellent IV sedation was administered, digital rectal exam was performed. No marked abnormality was noted, except for some external hemorrhoids. The flexible colonoscope was inserted and advanced to the cecum without difficulty. The prep was excellent. The following findings were noted: Ascending colon was unremarkable. Transverse colon, in the mid transverse colon, a 3 mm area that appeared to be early adenoma, was biopsied with cold biopsy forceps and sent for permanent. Scattered diverticula were noted. Descending colon, scattered diverticula. Sigmoid, scattered diverticula. Rectum unremarkable. On retroflexing the scope, she has some evidence of internal hemorrhoids, which appeared to be the cause of her bleeding, and these appeared to be friable. The patient tolerated the procedure well. We will have her follow up for a banding. /[id number] /MODL
== END 2019-11-10 10:14 | disposition home or self-care (01) ==
LOC: FB.SDS 07:04
PROVIDERS: ATTEND Surgery
DX: K63.5 Polyp of colon (principal); K57.30 Diverticulosis of large intestine without perforation or abscess without bleeding; K64.8 Other hemorrhoids; D50.9 Iron deficiency anemia, unspecified; J44.9 Chronic obstructive pulmonary disease, unspecified; I50.9 Heart failure, unspecified; F17.210 Nicotine dependence, cigarettes, uncomplicated; F41.9 Anxiety disorder, unspecified; F32.9 Major depressive disorder, single episode, unspecified; Z11.59 Encounter for screening for other viral diseases; Z79.82 Long term (current) use of aspirin; Z79.899 Other long term (current) drug therapy
CPT/HCPCS: 00811-QZ; 88305; J2001; J2704; J7120; U0002

== ENCOUNTER 2021-07-06 11:59 | Inpatient (IN) | payer MEDICARE, BC ==
[2021-07-06] MEDS ORDERED: Acetaminophen 325 MG Tab PO PRN (12:26)
[2021-07-06] MEDS ORDERED: Dexamethasone 4 MG/ML 5 ML MDV IVPUSH ONE (12:41)
[2021-07-06 13:17] LABS: CORONAVIRUS COVID-19 NAA NEGATIVE (NEGATIVE)
[2021-07-06] MEDS: Ipratropium 0.02% 0.5 MG/2.5 ML Neb Soln INH SCH ×2 (15:24→20:11)
[2021-07-06] MEDS: cefTRIAXone 2 GM Vial IVPUSH SCH (15:25)
[2021-07-06] MEDS: Doxycycline 100 MG in Sodium Chloride 0.9% 100 ML IV SCH (15:29)
[2021-07-06] MEDS: Aspirin 81 MG Tab.Chew PO SCH (15:36)
[2021-07-06] MEDS: Escitalopram 10 MG Tab PO SCH (15:36)
[2021-07-06] MEDS: Cyanocobalamin (Vitamin B12) 500 MCG Tab PO SCH (15:36)
[2021-07-06] MEDS: atorvaSTATin 40 MG Tab PO SCH (20:10)
[2021-07-06] MEDS: Arformoterol 15 MCG/2 ML Neb Soln INH SCH (20:11)
[2021-07-06] MEDS: Acetaminophen 500 MG Tab PO PRN (20:18)
[2021-07-06] MEDS: Metoprolol Tartrate 25 MG Tab PO SCH (20:19)
[2021-07-07] MEDS: Sodium Chloride 0.9% 10 ML Syringe FLUSH PRN (02:29)
[2021-07-07] MEDS: Doxycycline 100 MG in Sodium Chloride 0.9% 100 ML IV SCH ×2 (02:31→14:34)
[2021-07-07] MEDS: Ipratropium 0.02% 0.5 MG/2.5 ML Neb Soln INH SCH ×4 (06:07→20:30)
[2021-07-07] MEDS: Arformoterol 15 MCG/2 ML Neb Soln INH SCH ×2 (08:53→20:30)
[2021-07-07] MEDS: Furosemide 40 MG Tab PO SCH (08:56)
[2021-07-07] MEDS: Digoxin 125 MCG Tab PO SCH (08:57)
[2021-07-07] MEDS: Potassium Chloride 20 MEQ Tab.ER PO SCH (08:57)
[2021-07-07] MEDS: Metoprolol Tartrate 25 MG Tab PO SCH ×2 (08:57→20:31)
[2021-07-07] MEDS: Isosorbide Mononitrate 30 MG Tab.ER PO SCH (08:57)
[2021-07-07] MEDS: Clopidogrel 75 MG Tab PO SCH (08:57)
[2021-07-07] MEDS: Ferrous Sulfate 325 MG Tab PO SCH (08:57)
[2021-07-07] MEDS: guaiFENesin 600 MG Tab.ER PO SCH ×2 (11:31→20:34)
[2021-07-07] MEDS: Escitalopram 10 MG Tab PO SCH (11:31)
[2021-07-07] MEDS: Aspirin 81 MG Tab.Chew PO SCH (11:31)
[2021-07-07] MEDS: Cyanocobalamin (Vitamin B12) 500 MCG Tab PO SCH (11:31)
[2021-07-07] MEDS: cefTRIAXone 2 GM Vial IVPUSH SCH (14:26)
[2021-07-07] MEDS: atorvaSTATin 40 MG Tab PO SCH (20:31)
[2021-07-08] MEDS: Doxycycline 100 MG in Sodium Chloride 0.9% 100 ML IV SCH ×2 (02:33→14:30)
[2021-07-08] MEDS: Sodium Chloride 0.9% 10 ML Syringe FLUSH PRN (03:00)
[2021-07-08] MEDS: Ipratropium 0.02% 0.5 MG/2.5 ML Neb Soln INH SCH ×4 (06:11→20:35)
[2021-07-08] MEDS: Arformoterol 15 MCG/2 ML Neb Soln INH SCH ×2 (09:19→20:35)
[2021-07-08] MEDS: Ferrous Sulfate 325 MG Tab PO SCH (09:20)
[2021-07-08] MEDS: Metoprolol Tartrate 25 MG Tab PO SCH ×2 (09:20→20:36)
[2021-07-08] MEDS: Digoxin 125 MCG Tab PO SCH (09:21)
[2021-07-08] MEDS: Potassium Chloride 20 MEQ Tab.ER PO SCH (09:21)
[2021-07-08] MEDS: Isosorbide Mononitrate 30 MG Tab.ER PO SCH (09:21)
[2021-07-08] MEDS: Clopidogrel 75 MG Tab PO SCH (09:22)
[2021-07-08] MEDS: Furosemide 40 MG Tab PO SCH (09:22)
[2021-07-08] MEDS: guaiFENesin 600 MG Tab.ER PO SCH ×2 (10:00→20:41)
[2021-07-08] MEDS ORDERED: Dexamethasone 4 MG/ML 5 ML MDV IVPUSH ONE (11:27)
[2021-07-08] MEDS ORDERED: Dexamethasone 4 MG/ML SDV ONE (11:35)
[2021-07-08] MEDS ORDERED: Dexamethasone 4 MG/ML SDV IVPUSH ONE (11:45)
[2021-07-08] MEDS: Cyanocobalamin (Vitamin B12) 500 MCG Tab PO SCH (12:39)
[2021-07-08] MEDS: Aspirin 81 MG Tab.Chew PO SCH (12:39)
[2021-07-08] MEDS: Escitalopram 10 MG Tab PO SCH (12:40)
[2021-07-08] MEDS: cefTRIAXone 2 GM Vial IVPUSH SCH (15:14)
[2021-07-08] MEDS: atorvaSTATin 40 MG Tab PO SCH (20:35)
[2021-07-08] MEDS: Acetaminophen 500 MG Tab PO PRN (20:42)
[2021-07-09] MEDS: Sodium Chloride 0.9% 10 ML Syringe FLUSH PRN ×2 (03:01→08:44)
[2021-07-09] MEDS: Doxycycline 100 MG in Sodium Chloride 0.9% 100 ML IV SCH ×2 (03:01→14:42)
[2021-07-09] MEDS: Ipratropium 0.02% 0.5 MG/2.5 ML Neb Soln INH SCH ×4 (06:17→20:56)
[2021-07-09] MEDS: Arformoterol 15 MCG/2 ML Neb Soln INH SCH ×2 (08:35→21:08)
[2021-07-09] MEDS: Ferrous Sulfate 325 MG Tab PO SCH (08:37)
[2021-07-09] MEDS: Isosorbide Mononitrate 30 MG Tab.ER PO SCH (08:37)
[2021-07-09] MEDS: Clopidogrel 75 MG Tab PO SCH (08:37)
[2021-07-09] MEDS: Digoxin 125 MCG Tab PO SCH (08:38)
[2021-07-09] MEDS: Furosemide 40 MG Tab PO SCH (08:38)
[2021-07-09] MEDS: guaiFENesin 600 MG Tab.ER PO SCH ×2 (08:38→20:58)
[2021-07-09] MEDS: Potassium Chloride 20 MEQ Tab.ER PO SCH (08:38)
[2021-07-09] MEDS: Dexamethasone 4 MG/ML SDV IVPUSH SCH (08:39)
[2021-07-09] MEDS: Metoprolol Tartrate 25 MG Tab PO SCH ×2 (08:43→21:09)
[2021-07-09] MEDS ORDERED: Albuterol/Ipratropium 3.0-0.5 MG/3 ML Neb Soln INH PRN (09:15)
[2021-07-09] MEDS: Cyanocobalamin (Vitamin B12) 500 MCG Tab PO SCH (11:05)
[2021-07-09] MEDS: Aspirin 81 MG Tab.Chew PO SCH (11:05)
[2021-07-09] MEDS: Escitalopram 10 MG Tab PO SCH (11:05)
[2021-07-09] MEDS: Polyethylene Glycol 3350 Powder 17 GM Packet PO SCH (12:14)
[2021-07-09] MEDS: cefTRIAXone 2 GM Vial IVPUSH SCH (14:03)
[2021-07-09] MEDS: atorvaSTATin 40 MG Tab PO SCH (20:58)
[2021-07-09] MEDS: Acetaminophen 500 MG Tab PO PRN (21:15)
[2021-07-10] MEDS: Doxycycline 100 MG in Sodium Chloride 0.9% 100 ML IV SCH (02:40)
[2021-07-10] MEDS: Ipratropium 0.02% 0.5 MG/2.5 ML Neb Soln INH SCH ×4 (06:42→20:14)
[2021-07-10] MEDS: Arformoterol 15 MCG/2 ML Neb Soln INH SCH ×2 (08:38→20:22)
[2021-07-10] MEDS: guaiFENesin 600 MG Tab.ER PO SCH ×2 (08:40→20:27)
[2021-07-10] MEDS: Potassium Chloride 20 MEQ Tab.ER PO SCH (08:40)
[2021-07-10] MEDS: Clopidogrel 75 MG Tab PO SCH (08:40)
[2021-07-10] MEDS: Ferrous Sulfate 325 MG Tab PO SCH (08:41)
[2021-07-10] MEDS: Polyethylene Glycol 3350 Powder 17 GM Packet PO SCH (08:41)
[2021-07-10] MEDS: Dexamethasone 4 MG/ML SDV IVPUSH SCH (08:41)
[2021-07-10] MEDS: Furosemide 40 MG Tab PO SCH (08:41)
[2021-07-10] MEDS: Digoxin 125 MCG Tab PO SCH (08:42)
[2021-07-10] MEDS: Metoprolol Tartrate 25 MG Tab PO SCH ×2 (08:42→20:27)
[2021-07-10] MEDS: Isosorbide Mononitrate 30 MG Tab.ER PO SCH (08:42)
[2021-07-10] MEDS: Sodium Chloride 0.9% 10 ML Syringe FLUSH PRN (08:43)
[2021-07-10] MEDS ORDERED: Iopamidol 755 Mg/ML 75 ML Bottle IV ONE (10:07)
[2021-07-10] MEDS: Fluticasone NASAL Spray 16 GM Bottle NASBOTH SCH (10:55)
[2021-07-10] MEDS: Escitalopram 10 MG Tab PO SCH (10:59)
[2021-07-10] MEDS: Aspirin 81 MG Tab.Chew PO SCH (10:59)
[2021-07-10] MEDS: Cyanocobalamin (Vitamin B12) 500 MCG Tab PO SCH (10:59)
[2021-07-10] MEDS: Cefdinir 300 MG Cap PO SCH ×2 (11:51→20:27)
[2021-07-10] MEDS: Apixaban 5 MG Tab PO SCH (17:00)
[2021-07-10] MEDS ORDERED: Ibuprofen 200 MG Tab PO PRN (18:21)
[2021-07-10] MEDS: Doxycycline 100 MG Tab PO SCH (20:27)
[2021-07-10] MEDS: atorvaSTATin 40 MG Tab PO SCH (20:28)
[2021-07-11] MEDS: Ipratropium 0.02% 0.5 MG/2.5 ML Neb Soln INH SCH ×4 (06:06→20:01)
[2021-07-11] MEDS: Arformoterol 15 MCG/2 ML Neb Soln INH SCH ×2 (08:49→20:08)
[2021-07-11] MEDS: Fluticasone NASAL Spray 16 GM Bottle NASBOTH SCH (08:50)
[2021-07-11] MEDS: Potassium Chloride 20 MEQ Tab.ER PO SCH (08:50)
[2021-07-11] MEDS: Apixaban 5 MG Tab PO SCH ×2 (08:50→20:08)
[2021-07-11] MEDS: Digoxin 125 MCG Tab PO SCH (08:50)
[2021-07-11] MEDS: Isosorbide Mononitrate 30 MG Tab.ER PO SCH (08:50)
[2021-07-11] MEDS: Furosemide 40 MG Tab PO SCH (08:50)
[2021-07-11] MEDS: Metoprolol Tartrate 25 MG Tab PO SCH ×2 (08:51→20:07)
[2021-07-11] MEDS: Polyethylene Glycol 3350 Powder 17 GM Packet PO SCH (08:51)
[2021-07-11] MEDS: guaiFENesin 600 MG Tab.ER PO SCH ×2 (08:51→20:07)
[2021-07-11] MEDS: Doxycycline 100 MG Tab PO SCH ×2 (08:52→20:09)
[2021-07-11] MEDS: Cefdinir 300 MG Cap PO SCH ×2 (08:52→20:07)
[2021-07-11] MEDS: Escitalopram 10 MG Tab PO SCH (11:15)
[2021-07-11] MEDS: Cyanocobalamin (Vitamin B12) 500 MCG Tab PO SCH (11:16)
[2021-07-11] MEDS ORDERED: Ferrous Sulfate 325 MG Tab PO SCH (12:00)
[2021-07-11] MEDS: atorvaSTATin 40 MG Tab PO SCH (20:07)
[2021-07-12] MEDS: Ipratropium 0.02% 0.5 MG/2.5 ML Neb Soln INH SCH (06:03)
[2021-07-12] MEDS: Apixaban 5 MG Tab PO SCH (08:18)
[2021-07-12] MEDS: Digoxin 125 MCG Tab PO SCH (08:19)
[2021-07-12] MEDS: Potassium Chloride 20 MEQ Tab.ER PO SCH (08:19)
[2021-07-12] MEDS: Metoprolol Tartrate 25 MG Tab PO SCH (08:20)
[2021-07-12] MEDS: Furosemide 40 MG Tab PO SCH (08:20)
[2021-07-12 08:21] VITALS: BP 146/51; PULSE 66
[2021-07-12] MEDS: Isosorbide Mononitrate 30 MG Tab.ER PO SCH (08:21)
[2021-07-12] MEDS: Polyethylene Glycol 3350 Powder 17 GM Packet PO SCH (08:21)
[2021-07-12] MEDS: Fluticasone NASAL Spray 16 GM Bottle NASBOTH SCH (08:22)
[2021-07-12] MEDS: guaiFENesin 600 MG Tab.ER PO SCH (08:24)
[2021-07-12] MEDS: Cefdinir 300 MG Cap PO SCH (08:24)
[2021-07-12] MEDS: Doxycycline 100 MG Tab PO SCH (08:24)
[2021-07-12] MEDS ORDERED: Sodium Chloride 0.65% Nasal Spray 45 ML Bottle NAS PRN (09:04)
[2021-07-12] MEDS: Arformoterol 15 MCG/2 ML Neb Soln INH SCH (09:21)
[2021-07-17] MEDS ORDERED: Apixaban 5 MG Tab PO SCH (21:00)
== END 2021-07-12 10:30 | disposition home or self-care (01) | DRG 175 ==
LOC: INTOOBSV 11:59 → OBSVTOIN 11:59 → UNDOADMOB 11:59 → FB.MS 11:59 → OBSVTOIN 12:39
PROVIDERS: ADMIT Family Medicine; ATTEND Family Medicine
PROC: 3E0333Z Introduction of Anti-inflammatory into Peripheral Vein, Percutaneous Approach (ICD-10-PCS; principal; 2021-07-06)
PROC: 3E0DX3Z Introduction of Anti-inflammatory into Mouth and Pharynx, External Approach (ICD-10-PCS; 2021-07-08)
DX: I26.99 Other pulmonary embolism without acute cor pulmonale (principal); J18.9 Pneumonia, unspecified organism; J96.21 Acute and chronic respiratory failure with hypoxia; J96.22 Acute and chronic respiratory failure with hypercapnia; I50.31 Acute diastolic (congestive) heart failure; J44.0 Chronic obstructive pulmonary disease with (acute) lower respiratory infection; J44.1 Chronic obstructive pulmonary disease with (acute) exacerbation; I25.10 Atherosclerotic heart disease of native coronary artery without angina pectoris; I35.0 Nonrheumatic aortic (valve) stenosis; Z66 Do not resuscitate; I27.21 Secondary pulmonary arterial hypertension; D63.8 Anemia in other chronic diseases classified elsewhere; I48.91 Unspecified atrial fibrillation; K64.9 Unspecified hemorrhoids; H54.7 Unspecified visual loss; I49.9 Cardiac arrhythmia, unspecified; I71.4 Abdominal aortic aneurysm, without rupture; D64.9 Anemia, unspecified; Z85.118 Personal history of other malignant neoplasm of bronchus and lung; Z79.01 Long term (current) use of anticoagulants; Z95.2 Presence of prosthetic heart valve; Z95.0 Presence of cardiac pacemaker; Z99.81 Dependence on supplemental oxygen; Z90.2 Acquired absence of lung [part of]; Z79.899 Other long term (current) drug therapy; Z90.49 Acquired absence of other specified parts of digestive tract; Z95.5 Presence of coronary angioplasty implant and graft; K59.00 Constipation, unspecified; Z20.822 Contact with and (suspected) exposure to COVID-19
CPT/HCPCS: 0240U; 36415; 71046; 71275; 80048; 80053; 85025; 85379; 87040; 94640; A9270-GY; J0696; J1100; J3490; J7605; J7620-GY; Q9967

== ENCOUNTER 2021-12-29 00:08 | Emergency (ER) | payer MEDICARE, BC ==
[2021-12-29 00:40] LABS: ESTIMATED GFR 94 mL/min (>60)
[2021-12-29] MEDS ORDERED: Sodium Chloride 0.9% 250 ML IV SCH (01:00)
[2021-12-29 07:24] VITALS: BP 115/43; PULSE 58
== END 2021-12-29 08:30 | disposition home or self-care (01) ==
LOC: FB.ED 00:08
DX: I25.10 Atherosclerotic heart disease of native coronary artery without angina pectoris (principal); I11.0 Hypertensive heart disease with heart failure; I50.31 Acute diastolic (congestive) heart failure; K57.90 Diverticulosis of intestine, part unspecified, without perforation or abscess without bleeding; K64.8 Other hemorrhoids; J96.11 Chronic respiratory failure with hypoxia; D50.0 Iron deficiency anemia secondary to blood loss (chronic); I27.20 Pulmonary hypertension, unspecified; I48.91 Unspecified atrial fibrillation; I25.2 Old myocardial infarction; E78.00 Pure hypercholesterolemia, unspecified; Z95.0 Presence of cardiac pacemaker; Z79.01 Long term (current) use of anticoagulants; Z79.899 Other long term (current) drug therapy; Z99.81 Dependence on supplemental oxygen
CPT/HCPCS: 36415; 80053; 85014; 85018; 85025; 86850; 86900; 86901; 86920; 86922; 99284; 99285

== ENCOUNTER 2022-06-27 17:34 | Emergency (ER) | payer MEDICARE, BC ==
[2022-06-27 18:28] LABS: BASE EXCESS VENOUS,POC 5 mmol/L (-2 - 3+); PCO2 VENOUS,POC 55 mmHg (41-51); PH VENOUS,POC 7.37 pH Units (7.32-7.43)
[2022-06-27 18:32] LABS: ESTIMATED GFR 97 mL/min (>60)
[2022-06-27] MEDS ORDERED: predniSONE 20 MG Tab PO STA (19:31)
[2022-06-27] MEDS ORDERED: Amoxicillin/Clavulanate K 875-125 MG Tab PO STA (19:31)
[2022-06-27 20:21] VITALS: BP 150/65; PULSE 69
== END 2022-06-27 19:55 | disposition home or self-care (01) ==
LOC: FB.ED 17:34
DX: J44.1 Chronic obstructive pulmonary disease with (acute) exacerbation (principal); I50.9 Heart failure, unspecified; I25.2 Old myocardial infarction; E78.00 Pure hypercholesterolemia, unspecified; I48.91 Unspecified atrial fibrillation; Z95.0 Presence of cardiac pacemaker; Z87.891 Personal history of nicotine dependence; Z86.711 Personal history of pulmonary embolism
CPT/HCPCS: 36415; 80053; 83880; 84484; 85025; 93005; 99285; A9270; J7512; 71275; 93010; 99283; Q9967

== ENCOUNTER 2022-07-13 19:27 | Emergency (ER) | payer MEDICARE, BC ==
[2022-07-13] MEDS ORDERED: Acetaminophen/HYDROcodone 325-5 MG Tab PO ONE (19:28)
[2022-07-13 19:44] VITALS: BP 149/47; PULSE 71
[2022-07-13] MEDS ORDERED: Morphine 4 MG/ML VIAL IM ONE (19:48)
[2022-07-13] MEDS ORDERED: Ondansetron 4 MG/2 ML SDV IM ONE (19:48)
== END 2022-07-13 20:55 | disposition home or self-care (01) ==
LOC: FB.ED 19:27
DX: S52.532A Colles' fracture of left radius, initial encounter for closed fracture (principal); S00.31XA Abrasion of nose, initial encounter; I27.20 Pulmonary hypertension, unspecified; I48.91 Unspecified atrial fibrillation; E78.00 Pure hypercholesterolemia, unspecified; I25.2 Old myocardial infarction; J44.9 Chronic obstructive pulmonary disease, unspecified; Z79.01 Long term (current) use of anticoagulants; Z79.899 Other long term (current) drug therapy; W22.09XA Striking against other stationary object, initial encounter
CPT/HCPCS: 73110; 96372; 99283; A9270; J2270; J2405

== ENCOUNTER 2022-07-25 16:52 | Emergency (ER) | payer MEDICARE, BC ==
[2022-07-25] MEDS ORDERED: Alum Hydroxide/Mag Hydroxide 30 ML, Lidocaine 2% 15 ML PO ONE ×2 (17:01)
[2022-07-25 17:03] VITALS: BP 126/64; PULSE 64
[2022-07-25 17:16] LABS: ESTIMATED GFR 97 mL/min (>60)
[2022-07-25] MEDS ORDERED: Pantoprazole 40 MG Tab.CR PO ONE (17:38)
== END 2022-07-25 17:55 | disposition home or self-care (01) ==
LOC: FB.ED 16:52
DX: R10.13 Epigastric pain (principal); I25.10 Atherosclerotic heart disease of native coronary artery without angina pectoris; I48.91 Unspecified atrial fibrillation; I25.2 Old myocardial infarction; E78.00 Pure hypercholesterolemia, unspecified; E11.9 Type 2 diabetes mellitus without complications; J44.9 Chronic obstructive pulmonary disease, unspecified; I50.9 Heart failure, unspecified; Z95.0 Presence of cardiac pacemaker; Z79.01 Long term (current) use of anticoagulants; Z79.899 Other long term (current) drug therapy
CPT/HCPCS: 36415; 80048; 84484; 85025; 86140; 93005; 99285; A9270-GY

== ENCOUNTER 2023-04-19 08:04 | Emergency (ER) | payer MEDICARE, BC ==
[2023-04-19] MEDS ORDERED: Sodium Chloride 0.9% 10 ML Syringe FLUSH PRN (08:13)
[2023-04-19] MEDS ORDERED: methylPREDNISolone Sodium Succinate 125 MG/2 ML SDV IVPUSH ONE (08:18)
[2023-04-19 08:29] LABS: BLOOD UREA NITROGEN,BUN 29 mg/dL (7-18); CALCIUM 9.2 mg/dL (8.6-10.2); CARBON DIOXIDE,CO2 33 mmol/L (21-32); CHLORIDE,CL 104 mmol/L (100-110); CREATININE 0.6 mg/dL (0.55-1.02); ESTIMATED GFR 93 mL/min (>60); GLUCOSE RANDOM 181 mg/dL (80-116); HEMATOCRIT 39.3 % (34.2-48.2); HEMOGLOBIN 13.1 g/dL (11.4-15.5); MEAN CORPUSCULAR HEMOGLOBIN 31.6 pg (23.9-33.9); MEAN CORPUSCULAR HGB CONC 33.4 g/dL (31.9-34.8); MEAN CORPUSCULAR VOLUME 94.8 fL (76.7-100.5); MEAN PLATELET VOLUME 8.6 fL (7.1-12.4); PLATELET COUNT,PLT 181 x10(3)uL (151-488); POTASSIUM,K 3.9 mmol/L (3.5-5.3); RED BLOOD CELL COUNT 4.15 x10(6)uL (3.60-5.20); RED CELL DISTRIBUTION WIDTH 14.4 % (12.3-16.5); SODIUM,NA 142 mmol/L (135-145); WHITE BLOOD CELL COUNT,WBC 19.9 x10-3/uL (3.0-10.3)
[2023-04-19 08:35] LABS: ALANINE AMINOTRANSFERASE,ALT 19 U/L (12-36); ALBUMIN 3.5 g/dL (3.2-4.6); ALKALINE PHOSPHATASE 131 IU/L (56-112); ASPARTATE AMNIOTRANSFERASE,AST 22 IU/L (5-25); BILIRUBIN TOTAL 1.2 mg/dL (0.1-1.3); PROTEIN TOTAL,TP 7.2 g/dL (6.0-8.0)
[2023-04-19 08:37] LABS: BUN/CREATININE RATIO 48.3 (9-20)
[2023-04-19 08:40] LABS: INR 1.01 (1.00-1.24); PROTHROMBIN TIME 10.4 sec (9.0-11.1); PTT,PARTIAL THROMBOPLSTIN TIME 25.6 SECONDS (24.4-33.2)
[2023-04-19 08:48] LABS: BASE EXCESS VENOUS,POC 2 mmol/L (-2 - 3+); PCO2 VENOUS,POC 61 mmHg (41-51)
[2023-04-19 08:48] LABS: TSH ULTRASENSITIVE 3.65 IU/mL (0.36-3.74)
[2023-04-19 08:49] LABS: LACTIC ACID 2.3 mmol/L (0.4-2.0)
[2023-04-19 08:58] LABS: LYMPHOCYTES PERCENT MAN 7 % (13-37); MONOCYTES PERCENT MAN 6 % (4-12); SEG NEUTROPHILS PERCENT MAN 87 % (46-82)
[2023-04-19] MEDS ORDERED: Piperacillin/Tazobactam 3.375 GM in Sodium Chloride 0.9% 50 ML IV SCH (09:00)
[2023-04-19] MEDS ORDERED: methylPREDNISolone Sodium Succinate 125 MG/2 ML SDV IVPUSH SCH (09:00)
[2023-04-19 09:05] LABS: INFLUENZA A NAA NEGATIVE (NEGATIVE); INFLUENZA B NAA NEGATIVE (NEGATIVE)
[2023-04-19 09:06] LABS: CORONAVIRUS COVID-19 NAA NEGATIVE (NEGATIVE)
[2023-04-19] MEDS ORDERED: Sodium Chloride 0.9% 1,000 ML IV SCH (09:15)
[2023-04-19] MEDS ORDERED: VANCOmycin 1.5 GM/300 ML 1.5 GM in Premix Bag 1 BAG IV ONE (10:00)
[2023-04-19] MEDS ORDERED: Albuterol/Ipratropium 3.0-0.5 MG/3 ML Neb Soln NEB ONE (10:43)
[2023-04-19 11:12] VITALS: BP 142/88; PULSE 95
[2023-04-19] MEDS ORDERED: LORazepam 2 MG/ML SDV IVPUSH ONE (11:40)
[2023-04-19] MEDS ORDERED: LORazepam 2 MG/ML SDV ONE (11:41)
[2023-04-19] MEDS ORDERED: Flumazenil 0.1 MG/ML 5 ML MDV IVPUSH ONE ×2 (11:55→11:56)
[2023-04-19] MEDS ORDERED: Flumazenil 0.1 MG/ML 5 ML MDV ONE (11:57)
== END 2023-04-19 12:46 ==
LOC: FB.ED 08:04
DX: A41.9 Sepsis, unspecified organism (principal); J96.12 Chronic respiratory failure with hypercapnia; I48.91 Unspecified atrial fibrillation; I21.4 Non-ST elevation (NSTEMI) myocardial infarction; J44.1 Chronic obstructive pulmonary disease with (acute) exacerbation; I50.9 Heart failure, unspecified; I25.2 Old myocardial infarction; E78.00 Pure hypercholesterolemia, unspecified; Z79.899 Other long term (current) drug therapy; Z79.01 Long term (current) use of anticoagulants; Z20.822 Contact with and (suspected) exposure to COVID-19
CPT/HCPCS: 0240U; 36415; 71045; 80053; 83605; 83880; 84443; 84484; 85025; 85610; 85730; 87040; 93005; 94660; 96365; 96366; 96367; 96375; 99285; J2060; J2543; J2930; J3370; J3490; J7620

== ENCOUNTER 2023-06-11 19:14 | Inpatient (IN) | payer MEDICARE, BC ==
[2023-06-11] MEDS ORDERED: methylPREDNISolone Sodium Succinate 125 MG/2 ML SDV IVPUSH ONE (19:21)
[2023-06-11] MEDS ORDERED: Albuterol/Ipratropium 3.0-0.5 MG/3 ML Neb Soln NEB ONE (19:22)
[2023-06-11] MEDS: Sodium Chloride 0.9% 10 ML Syringe FLUSH PRN (19:35)
[2023-06-11 19:49] LABS: HEMATOCRIT 33.1 % (34.2-48.2); MEAN CORPUSCULAR HGB CONC 33.1 g/dL (31.9-34.8); MEAN CORPUSCULAR VOLUME 96.8 fL (76.7-100.5); MEAN PLATELET VOLUME 7.6 fL (7.1-12.4); PLATELET COUNT,PLT 219 x10(3)uL (151-488); RED BLOOD CELL COUNT 3.42 x10(6)uL (3.60-5.20); RED CELL DISTRIBUTION WIDTH 15.2 % (12.3-16.5); WHITE BLOOD CELL COUNT,WBC 11.8 x10-3/uL (3.0-10.3)
[2023-06-11 19:55] LABS: BASE EXCESS VENOUS,POC 12 mmol/L (-2 - 3+); PCO2 VENOUS,POC 63 mmHg (41-51); PH VENOUS,POC 7.41 pH Units (7.32-7.43)
[2023-06-11 19:57] LABS: ALANINE AMINOTRANSFERASE,ALT 32 U/L (12-36); ALKALINE PHOSPHATASE 77 IU/L (56-112); ASPARTATE AMNIOTRANSFERASE,AST 19 IU/L (5-25); BILIRUBIN TOTAL 0.7 mg/dL (0.1-1.3); BLOOD UREA NITROGEN,BUN 34 mg/dL (7-18); CALCIUM 8.9 mg/dL (8.6-10.2); CHLORIDE,CL 101 mmol/L (100-110); CREATININE 0.5 mg/dL (0.55-1.02); ESTIMATED GFR 97 mL/min (>60); GLUCOSE RANDOM 185 mg/dL (80-116); POTASSIUM,K 4.2 mmol/L (3.5-5.3); SODIUM,NA 140 mmol/L (135-145)
[2023-06-11 20:00] LABS: D-DIMER QUANTITATIVE 2.71 mg/LFEU (0.0-0.59)
[2023-06-11 20:01] LABS: BAND PERCENT MAN 2 % (0-6); CARBON DIOXIDE,CO2 41 mmol/L (21-32); LYMPHOCYTES PERCENT MAN 3 % (13-37); MONOCYTES PERCENT MAN 3 % (4-12); SEG NEUTROPHILS PERCENT MAN 92 % (46-82)
[2023-06-11 20:04] LABS: LACTIC ACID 1.5 mmol/L (0.4-2.0); TROPONIN I 32.4 pg/mL (4.0-60.3)
[2023-06-11 20:05] LABS: INR 0.99 (1.00-1.24); PROTHROMBIN TIME 10.3 sec (9.0-11.1); PTT,PARTIAL THROMBOPLSTIN TIME 25.3 SECONDS (24.4-33.2)
[2023-06-11 20:20] LABS: INFLUENZA A NAA NEGATIVE (NEGATIVE); INFLUENZA B NAA NEGATIVE (NEGATIVE)
[2023-06-11 20:22] LABS: CORONAVIRUS COVID-19 NAA NEGATIVE (NEGATIVE)
[2023-06-11] MEDS ORDERED: Acetaminophen 325 MG Tab PO PRN (20:58)
[2023-06-11] MEDS ORDERED: Sennosides/Docusate Sodium 50-8.6 MG Tab PO PRN (20:58)
[2023-06-11] MEDS ORDERED: Ondansetron 4 MG/2 ML SDV IV PRN (20:58)
[2023-06-11] MEDS ORDERED: Sodium Chloride 0.9% 1,000 ML IV SCH (21:00)
[2023-06-11] MEDS ORDERED: Albuterol/Ipratropium 3.0-0.5 MG/3 ML Neb Soln NEB SCH (21:00)
[2023-06-11] MEDS ORDERED: Enoxaparin 30 MG/0.3 ML Syringe SUBCUT SCH (21:00)
[2023-06-11] MEDS ORDERED: cefTRIAXone 1 GM Vial IVPUSH SCH (21:00)
[2023-06-11] MEDS ORDERED: Nitroglycerin 0.4 MG Tab.SL SL PRN (21:53)
[2023-06-11] MEDS ORDERED: Morphine Oral Concentrate 20 MG/ML 30 ML Bottle PO PRN (21:53)
[2023-06-11] MEDS ORDERED: Morphine Oral Concentrate 20 MG/ML 30 ML Bottle PO SCH (22:00)
[2023-06-12] MEDS ORDERED: Naloxone 0.4 MG/ML SDV IVPUSH PRN (00:04)
[2023-06-12] MEDS: Morphine 10 MG/0.5 ML Oral Syringe PO SCH ×5 (00:22→21:00)
[2023-06-12] MEDS: Albuterol/Ipratropium 3.0-0.5 MG/3 ML Neb Soln NEB SCH ×5 (00:23→20:53)
[2023-06-12] MEDS: cefTRIAXone 1 GM Vial IVPUSH SCH (00:23)
[2023-06-12] MEDS: Sodium Chloride 0.9% 10 ML Syringe FLUSH PRN ×8 (00:24→20:54)
[2023-06-12] MEDS ORDERED: Sodium Chloride 0.9% 20 ML SDV FLUSH SCH (01:00)
[2023-06-12] MEDS: methylPREDNISolone Sodium Succinate 125 MG/2 ML SDV IVPUSH SCH ×3 (05:28→20:53)
[2023-06-12 07:14] LABS: HEMOGLOBIN 10.5 g/dL (11.4-15.5); MEAN CORPUSCULAR HEMOGLOBIN 31.7 pg (23.9-33.9); MEAN CORPUSCULAR HGB CONC 32.9 g/dL (31.9-34.8); MEAN CORPUSCULAR VOLUME 96.4 fL (76.7-100.5); MEAN PLATELET VOLUME 7.6 fL (7.1-12.4); PLATELET COUNT,PLT 195 x10(3)uL (151-488); RED BLOOD CELL COUNT 3.32 x10(6)uL (3.60-5.20); WHITE BLOOD CELL COUNT,WBC 7.9 x10-3/uL (3.0-10.3)
[2023-06-12 07:24] LABS: A/G RATIO 1.2; ALANINE AMINOTRANSFERASE,ALT 24 U/L (12-36); ALBUMIN 3.1 g/dL (3.2-4.6); ALKALINE PHOSPHATASE 71 IU/L (56-112); ASPARTATE AMNIOTRANSFERASE,AST 16 IU/L (5-25); BILIRUBIN TOTAL 0.7 mg/dL (0.1-1.3); BLOOD UREA NITROGEN,BUN 35 mg/dL (7-18); CALCIUM 8.8 mg/dL (8.6-10.2); CARBON DIOXIDE,CO2 36 mmol/L (21-32); CHLORIDE,CL 104 mmol/L (100-110); CREATININE 0.5 mg/dL (0.55-1.02); EST CRCL DRUG DOSING (CG) 74.26 mL/min; ESTIMATED GFR 97 mL/min (>60); GLUCOSE RANDOM 145 mg/dL (80-116); POTASSIUM,K 3.9 mmol/L (3.5-5.3); PROTEIN TOTAL,TP 5.8 g/dL (6.0-8.0); SODIUM,NA 140 mmol/L (135-145)
[2023-06-12 07:26] LABS: BILIRUBIN,URINE NEGATIVE (NEGATIVE); GLUCOSE,URINE NORMAL (NORMAL); KETONES,URINE NEGATIVE (NEGATIVE); LEUKOCYTE ESTERASE,URINE SMALL (NEGATIVE); NITRITE,URINE NEGATIVE (NEGATIVE); OCCULT BLOOD,URINE LARGE (NEGATIVE); PH,URINE 6.5 (5.0-6.5); PROTEIN,URINE NEGATIVE (NEGATIVE); UROBILINOGEN,URINE 1 mg/dL (NEGATIVE)
[2023-06-12 07:29] LABS: APPEARANCE,URINE SLIGHTLY CLOUDY (CLEAR); BACTERIA,URINE MODERATE (NS); COLOR,URINE YELLOW (YELLOW); MUCUS,URINE FEW (NS); SQUAMOUS EPITHELIAL CELLS,UR FEW (NS,R,O)
[2023-06-12 07:37] LABS: LYMPHOCYTES PERCENT MAN 5 % (13-37); MONOCYTES PERCENT MAN 4 % (4-12); SEG NEUTROPHILS PERCENT MAN 91 % (46-82)
[2023-06-12 07:38] LABS: ANISOCYTOSIS FEW; POIKILOCYTOSIS FEW
[2023-06-12 07:39] LABS: BURR CELLS FEW; OVALOCYTES FEW
[2023-06-12] MEDS ORDERED: Digoxin 125 MCG Tab PO SCH (09:00)
[2023-06-12] MEDS ORDERED: Dexamethasone 4 MG Tab PO SCH (09:00)
[2023-06-12] MEDS: Arformoterol 15 MCG/2 ML Neb Soln INH SCH ×2 (09:23→20:53)
[2023-06-12] MEDS: Apixaban 2.5 MG Tab PO SCH ×2 (09:23→20:53)
[2023-06-12] MEDS: Ferrous Sulfate 325 MG Tab PO SCH (09:23)
[2023-06-12] MEDS: Potassium Chloride 20 MEQ Tab.ER PO SCH (09:24)
[2023-06-12] MEDS: Polyethylene Glycol 3350 Powder 17 GM Packet PO SCH (09:25)
[2023-06-12] MEDS: Morphine 10 MG/0.5 ML Oral Syringe PO PRN (09:28)
[2023-06-12] MEDS: Isosorbide Mononitrate 30 MG Tab.ER PO SCH (09:32)
[2023-06-12] MEDS: Metoprolol Succinate 50 MG Tab.ER PO SCH (09:33)
[2023-06-12] MEDS: Clopidogrel 75 MG Tab PO SCH ×2 (09:37→09:46)
[2023-06-12] MEDS ORDERED: Furosemide 40 MG/4 ML VIAL IVPUSH ONE (09:48)
[2023-06-12] MEDS: Escitalopram 10 MG Tab PO SCH (12:01)
[2023-06-12] MEDS: Cyanocobalamin (Vitamin B12) 500 MCG Tab PO SCH (12:03)
[2023-06-12] MEDS: Revefenacin 175 MCG/3 ML Neb Soln INH SCH (16:25)
[2023-06-12] MEDS ORDERED: Albuterol/Ipratropium 3.0-0.5 MG/3 ML Neb Soln NEB ONE (18:12)
[2023-06-12] MEDS ORDERED: Morphine 4 MG/ML VIAL IVPUSH ONE (18:12)
[2023-06-12] MEDS: atorvaSTATin 40 MG Tab PO SCH (20:54)
[2023-06-12] MEDS ORDERED: Acetaminophen 500 MG Tab PO SCH (21:00)
[2023-06-13] MEDS: cefTRIAXone 1 GM Vial IVPUSH SCH (00:42)
[2023-06-13] MEDS: Sodium Chloride 0.9% 10 ML Syringe FLUSH PRN ×5 (00:42→23:57)
[2023-06-13] MEDS: Morphine 10 MG/0.5 ML Oral Syringe PO PRN (00:49)
[2023-06-13] MEDS: methylPREDNISolone Sodium Succinate 125 MG/2 ML SDV IVPUSH SCH ×2 (05:22→16:15)
[2023-06-13] MEDS: Albuterol/Ipratropium 3.0-0.5 MG/3 ML Neb Soln NEB SCH ×4 (06:21→21:22)
[2023-06-13 06:53] LABS: HEMATOCRIT 28.7 % (34.2-48.2); HEMOGLOBIN 9.7 g/dL (11.4-15.5); MEAN CORPUSCULAR HEMOGLOBIN 32.2 pg (23.9-33.9); MEAN CORPUSCULAR HGB CONC 33.8 g/dL (31.9-34.8); MEAN CORPUSCULAR VOLUME 95.3 fL (76.7-100.5); MEAN PLATELET VOLUME 7.8 fL (7.1-12.4); PLATELET COUNT,PLT 189 x10(3)uL (151-488); RED BLOOD CELL COUNT 3.01 x10(6)uL (3.60-5.20)
[2023-06-13 07:05] LABS: BLOOD UREA NITROGEN,BUN 36 mg/dL (7-18); CALCIUM 9.1 mg/dL (8.6-10.2); CARBON DIOXIDE,CO2 38 mmol/L (21-32); CHLORIDE,CL 104 mmol/L (100-110); CREATININE 0.4 mg/dL (0.55-1.02); EST CRCL DRUG DOSING (CG) 92.83 mL/min; ESTIMATED GFR 102 mL/min (>60); GLUCOSE RANDOM 144 mg/dL (80-116); POTASSIUM,K 3.9 mmol/L (3.5-5.3); SODIUM,NA 141 mmol/L (135-145)
[2023-06-13 07:16] LABS: LYMPHOCYTES PERCENT MAN 1 % (13-37); SEG NEUTROPHILS PERCENT MAN 99 % (46-82)
[2023-06-13] MEDS: Apixaban 2.5 MG Tab PO SCH ×2 (09:19→21:21)
[2023-06-13] MEDS: Metoprolol Succinate 50 MG Tab.ER PO SCH (09:19)
[2023-06-13] MEDS: Isosorbide Mononitrate 30 MG Tab.ER PO SCH (09:19)
[2023-06-13] MEDS: Potassium Chloride 20 MEQ Tab.ER PO SCH (09:19)
[2023-06-13] MEDS: Polyethylene Glycol 3350 Powder 17 GM Packet PO SCH (09:19)
[2023-06-13] MEDS: Clopidogrel 75 MG Tab PO SCH (09:19)
[2023-06-13] MEDS: Ferrous Sulfate 325 MG Tab PO SCH (09:19)
[2023-06-13] MEDS: Arformoterol 15 MCG/2 ML Neb Soln INH SCH ×2 (09:19→21:24)
[2023-06-13] MEDS: Morphine 10 MG/0.5 ML Oral Syringe PO SCH ×2 (09:20→17:37)
[2023-06-13] MEDS: Cyanocobalamin (Vitamin B12) 500 MCG Tab PO SCH (12:11)
[2023-06-13] MEDS: Acetaminophen 500 MG Tab PO PRN ×2 (12:11→19:52)
[2023-06-13] MEDS: Escitalopram 10 MG Tab PO SCH (12:11)
[2023-06-13] MEDS: Albuterol 0.083% 2.5 MG/3 ML Neb Soln NEB PRN (12:11)
[2023-06-13] MEDS: Revefenacin 175 MCG/3 ML Neb Soln INH SCH (16:14)
[2023-06-13] MEDS: Morphine 2 MG/ML SYRINGE IVPUSH PRN (17:00)
[2023-06-13] MEDS: atorvaSTATin 40 MG Tab PO SCH (21:19)
[2023-06-14] MEDS: Morphine 2 MG/ML SYRINGE IVPUSH PRN ×3 (00:01→11:54)
[2023-06-14] MEDS: cefTRIAXone 1 GM Vial IVPUSH SCH (00:04)
[2023-06-14] MEDS: methylPREDNISolone Sodium Succinate 125 MG/2 ML SDV IVPUSH SCH (05:09)
[2023-06-14] MEDS: Sodium Chloride 0.9% 10 ML Syringe FLUSH PRN (05:09)
[2023-06-14] MEDS: Albuterol/Ipratropium 3.0-0.5 MG/3 ML Neb Soln NEB SCH ×2 (06:40→10:36)
[2023-06-14] MEDS: Albuterol 0.083% 2.5 MG/3 ML Neb Soln NEB PRN ×2 (08:10→13:06)
[2023-06-14] MEDS ORDERED: VANCOmycin 1 GM/200 ML 1 GM in Premix Bag 1 BAG IV SCH (08:45)
[2023-06-14] MEDS: Polyethylene Glycol 3350 Powder 17 GM Packet PO SCH (09:33)
[2023-06-14] MEDS: Isosorbide Mononitrate 30 MG Tab.ER PO SCH (09:33)
[2023-06-14] MEDS: Clopidogrel 75 MG Tab PO SCH (09:33)
[2023-06-14] MEDS: Arformoterol 15 MCG/2 ML Neb Soln INH SCH (09:34)
[2023-06-14] MEDS: Metoprolol Succinate 50 MG Tab.ER PO SCH (09:34)
[2023-06-14] MEDS: Potassium Chloride 20 MEQ Tab.ER PO SCH (09:34)
[2023-06-14] MEDS: Ferrous Sulfate 325 MG Tab PO SCH (09:34)
[2023-06-14] MEDS: Apixaban 2.5 MG Tab PO SCH (09:34)
[2023-06-14] MEDS: Escitalopram 10 MG Tab PO SCH (11:47)
[2023-06-14] MEDS: Cyanocobalamin (Vitamin B12) 500 MCG Tab PO SCH (11:47)
[2023-06-14] MEDS ORDERED: predniSONE 20 MG Tab PO ONE (13:52)
[2023-06-14 14:40] VITALS: BP 149/40; PULSE 72
== END 2023-06-14 13:53 | disposition hospice, inpatient (51) | DRG 190 ==
LOC: FB.ED 19:14 → FB.MS 20:58
PROVIDERS: ADMIT Emergency Medicine; ATTEND Family Medicine
DX: J44.1 Chronic obstructive pulmonary disease with (acute) exacerbation (principal); I21.4 Non-ST elevation (NSTEMI) myocardial infarction; I50.9 Heart failure, unspecified; I50.43 Acute on chronic combined systolic (congestive) and diastolic (congestive) heart failure; J96.11 Chronic respiratory failure with hypoxia; N30.00 Acute cystitis without hematuria; N39.0 Urinary tract infection, site not specified; D63.8 Anemia in other chronic diseases classified elsewhere; I48.91 Unspecified atrial fibrillation; E78.00 Pure hypercholesterolemia, unspecified; D64.9 Anemia, unspecified; Z66 Do not resuscitate; Z51.5 Encounter for palliative care; E86.0 Dehydration; I25.10 Atherosclerotic heart disease of native coronary artery without angina pectoris; K64.8 Other hemorrhoids; I27.21 Secondary pulmonary arterial hypertension; Z88.8 Allergy status to other drugs, medicaments and biological substances; Z79.899 Other long term (current) drug therapy; Z79.01 Long term (current) use of anticoagulants; Z79.02 Long term (current) use of antithrombotics/antiplatelets; Z79.891 Long term (current) use of opiate analgesic; Z95.2 Presence of prosthetic heart valve; I25.2 Old myocardial infarction; Z95.5 Presence of coronary angioplasty implant and graft; Z98.49 Cataract extraction status, unspecified eye; Z98.890 Other specified postprocedural states; Z90.89 Acquired absence of other organs; Z90.49 Acquired absence of other specified parts of digestive tract; Z90.2 Acquired absence of lung [part of]; Z87.891 Personal history of nicotine dependence; Z11.52 Encounter for screening for COVID-19; Z99.81 Dependence on supplemental oxygen; Z95.0 Presence of cardiac pacemaker
CPT/HCPCS: 0240U; 36415; 71045; 80048; 80053; 80162; 81001; 83605; 83880; 84484; 85025; 85379; 85610; 85730; 87040; 87086; 93005; 93010; 94640; 97165; 99285; 99222; 99232; 99238; A9270-GY; J0696; J1940; J2270; J2930; J3490; J7030; J7512; J7605; J7620; J7677; J8540